=== PATIENT | male | born 1945 | race Caucasian/White ===

== ENCOUNTER 2021-11-25 13:23 | Emergency (ER) | payer OTHER ==
[2021-11-25 15:18] VITALS: BP 142/82
[2021-11-25] MEDS ORDERED: ACE3T PO (16:12)
== END 2021-11-25 16:40 | disposition home or self-care (01) ==
LOC: ER 13:23
DX: S30.0XXA Contusion of lower back and pelvis, initial encounter (principal); J44.9 Chronic obstructive pulmonary disease, unspecified; I10 Essential (primary) hypertension; F17.210 Nicotine dependence, cigarettes, uncomplicated; W18.11XA Fall from or off toilet without subsequent striking against object, initial encounter; Y93.89 Activity, other specified; Y92.091 Bathroom in other non-institutional residence as the place of occurrence of the external cause; Y99.8 Other external cause status
CPT/HCPCS: 72100

== ENCOUNTER 2021-11-28 15:51 | Emergency (ER) | payer OTHER ==
[~2021-11-28] VITALS: Ht 180.3 cm; Wt 80.0 kg
[~2021-11-28 15:51] MED LIST: ACE3T PO
[2021-11-28] MEDS ORDERED: SODIUM CHLORIDE 0.9% 1,000 ML IVB ONE (17:30)
[2021-11-28 19:58] LABS: Basophils # (auto) 0.1 10 ^3/uL (0-0.2); Basophils % (auto) 1.1 % (0.0-2.0); Eosinophils # (auto) 0.1 10 ^3/uL (0-0.8); Eosinophils % (auto) 1.5 % (0.0-7.0); Hematocrit 50.6 % (41.0-53.0); Hemoglobin 16.6 g/dL (13.5-17.5); Lymphocytes # (auto) 1.5 10 ^3/uL (0.4-5.4); Lymphocytes % (auto) 19.2 % (10.0-50.0); Mean Corpuscular Hemoglobin 31.7 pg (28.0-32.0); Mean Corpuscular Hgb Conc. 32.9 g/dL (32.0-36.0); Mean Corpuscular Volume 96.5 fL (80.0-100.0); Monocytes # (auto) 0.8 10 ^3/uL (0-1.3); Monocytes % (auto) 10.1 % (0.0-12.0); Neutrophils # (auto) 5.4 10 ^3/uL (1.6-8.6); Neutrophils % (auto) 68.1 % (37.0-80.0); Nucleated Red Blood Cells % 0.1 %; Red Blood Cells 5.24 10^6/uL (4.5-5.90); Red Cell Distribution Width 13.8 % (11.8-14.3); White Blood Cell 7.9 10^3/uL (4.4-10.8)
[2021-11-28] MEDS ORDERED: DILT120T13 PO (19:58)
[2021-11-28] MEDS ORDERED: SENN1TAB14 PO (19:58)
[2021-11-28] MEDS ORDERED: DOCU100T15 PO (19:58)
[2021-11-28] MEDS ORDERED: ACETAMINOPHEN 500 MG TAB PO ONE (20:00)
[2021-11-28 21:05] VITALS: BP 144/90
[2021-11-28] MEDS ORDERED: dilTIAZem 120MG ER CAP PO ONE (21:15)
[2021-11-28 21:35] LABS: Calcium 8.7 mg/dL (8.5-10.1); Potassium 4.4 mmol/L (3.5-5.1)
[2021-11-28 21:39] LABS: BUN/Creatinine Ratio 12.8; Bilirubin, Total 0.6 mg/dL (0.2-1.0)
== END 2021-11-28 21:03 | disposition home or self-care (01) ==
LOC: ER 15:51 → EDUNIT# 15:51 → ER 21:03
DX: K59.00 Constipation, unspecified (principal); K21.9 Gastro-esophageal reflux disease without esophagitis; Z76.0 Encounter for issue of repeat prescription; Z79.899 Other long term (current) drug therapy
CPT/HCPCS: 36415; 74176; 80053; 83605; 83690; 84484; 85025; 93005; 96360

== ENCOUNTER 2022-11-24 08:05 | Inpatient (IN) | payer OTHER ==
[2022-11-24] VITALS (7 sets, daily range): BP systolic 98–138; BP diastolic 69–87; PULSE 48–88; RESP 17–20; TEMP 97.6–97.7; O2SAT 90–96
[~2022-11-24] VITALS: Ht 182.9 cm; Wt 94.4 kg
[~2022-11-24 08:05] MED LIST changes: +DILT120T13 PO; +DOCU100T15 PO; +SENN1TAB14 PO
[2022-11-24] MEDS ORDERED: ETOMIDATE (2MG/ML) 20ML VIAL IV ONE ×2 (10:32)
[2022-11-24] MEDS ORDERED: SUCCINYLCHOLINE CHLORIDE 20 MG/ML 10ML VIAL IV ONE (10:32)
[2022-11-24] MEDS ORDERED: HYDROmorphone HCL 2 MG/ML VL/or syr IV ONE (11:15)
[2022-11-24] MEDS ORDERED: ONDANSETRON HCL 4 MG/2 ML VIAL IV ONE (11:15)
[2022-11-24] MEDS ORDERED: SODIUM CHLORIDE 0.9% 1,000 ML IV ONE (11:15)
[2022-11-24 11:30] LABS: Basophils # (auto) 0 10 ^3/uL (0-0.2); Basophils % (auto) 0.3 % (0.0-2.0); Eosinophils # (auto) 0 10 ^3/uL (0-0.8); Hematocrit 46.3 % (41.0-53.0); Hemoglobin 15.6 g/dL (13.5-17.5); Lymphocytes # (auto) 0.7 10 ^3/uL (0.4-5.4); Lymphocytes % (auto) 8.3 % (10.0-50.0); Mean Corpuscular Hemoglobin 32.9 pg (28.0-32.0); Mean Corpuscular Hgb Conc. 33.8 g/dL (32.0-36.0); Mean Corpuscular Volume 97.4 fL (80.0-100.0); Monocytes # (auto) 0.6 10 ^3/uL (0-1.3); Monocytes % (auto) 6.6 % (0.0-12.0); Neutrophils # (auto) 7.5 10 ^3/uL (1.6-8.6); Neutrophils % (auto) 84.8 % (37.0-80.0); Nucleated Red Blood Cells % 0.1 %; Red Blood Cells 4.75 10^6/uL (4.5-5.90); Red Cell Distribution Width 13.7 % (11.8-14.3); White Blood Cell 8.8 10^3/uL (4.4-10.8)
[2022-11-24 11:44] LABS: INR 1.04 (0.9-1.15); Partial Thromboplastin Time 27.3 SEC (24.5-34.5)
[2022-11-24 12:08] LABS: Albumin 3.3 g/dL (3.4-5.0); Calcium 8.9 mg/dL (8.5-10.1); Magnesium 2.5 mg/dL (1.6-2.6); Potassium 5.1 mmol/L (3.5-5.1)
[2022-11-24 12:13] LABS: BUN/Creatinine Ratio 12.5 (10.0-20.0); Bilirubin, Total 0.7 mg/dL (0.2-1.0)
[2022-11-24] MEDS ORDERED: MORPHINE SULFATE INJ 2 MG/ml SYRG IV PRN (12:45)
[2022-11-24] MEDS ORDERED: ACETAMINOPHEN 325 MG TAB PO PRN (12:45)
[2022-11-24] MEDS ORDERED: IPRATROPIUM BROM 0.5 MG/2.5ML INH SOL NEB ONE (13:00)
[2022-11-24] MEDS ORDERED: ALBUTEROL SULF 2.5 MG/0.5ML(0.5%) NEB SOLN NEB PRN (13:00)
[2022-11-24] MEDS ORDERED: IPRATROPIUM BROM 0.5 MG/2.5ML INH SOL NEB PRN (13:00)
[2022-11-24] MEDS ORDERED: ALBUTEROL SULF 2.5 MG/0.5ML(0.5%) NEB SOLN NEB ONE (13:00)
[2022-11-24] MEDS: HYDROcodone-ACET 5/325MG TAB PO PRN (15:13)
[2022-11-24 15:44] LABS: Urine Bacteria NONE SEEN /hpf (None Seen); Urine Blood Negative /uL (Negative); Urine Mucus FEW (None Seen); Urine Specific Gravity 1.022 (1.001-1.035); Urine WBC 4 /hpf (0 - 3)
[2022-11-24] MEDS ORDERED: TRAZ-228 PO (16:21)
[2022-11-24] MEDS ORDERED: PANT40T PO (16:21)
[2022-11-24] MEDS: traZODone HCL 50 MG TAB PO SCH (21:30)
[2022-11-24] MEDS: dilTIAZem HCL 60 MG TAB PO SCH (21:38)
[2022-11-25] VITALS (10 sets, daily range): BP systolic 98–145; BP diastolic 69–98; PULSE 62–98; RESP 17–69; TEMP 97.6–98.3; O2SAT 90–96
[2022-11-25 06:16] LABS: Basophils # (auto) 0 10 ^3/uL (0-0.2); Basophils % (auto) 0.3 % (0.0-2.0); Eosinophils # (auto) 0 10 ^3/uL (0-0.8); Eosinophils % (auto) 0.4 % (0.0-7.0); Hematocrit 44.4 % (41.0-53.0); Hemoglobin 15.2 g/dL (13.5-17.5); Lymphocytes # (auto) 0.8 10 ^3/uL (0.4-5.4); Lymphocytes % (auto) 10.6 % (10.0-50.0); Mean Corpuscular Hemoglobin 33.3 pg (28.0-32.0); Mean Corpuscular Hgb Conc. 34.3 g/dL (32.0-36.0); Mean Corpuscular Volume 97.2 fL (80.0-100.0); Monocytes # (auto) 0.8 10 ^3/uL (0-1.3); Monocytes % (auto) 10.4 % (0.0-12.0); Neutrophils # (auto) 5.8 10 ^3/uL (1.6-8.6); Neutrophils % (auto) 78.3 % (37.0-80.0); Nucleated Red Blood Cells % 0.1 %; Red Blood Cells 4.56 10^6/uL (4.5-5.90); Red Cell Distribution Width 13.7 % (11.8-14.3); White Blood Cell 7.4 10^3/uL (4.4-10.8)
[2022-11-25 06:51] LABS: Bilirubin, Total 0.8 mg/dL (0.2-1.0); Calcium 8.9 mg/dL (8.5-10.1)
[2022-11-25 07:14] LABS: Cholesterol 156 mg/dL (< 200); HDL Cholesterol 12 mg/dL (40-59); LDL Cholesterol 57 mg/dL (< 100); Triglycerides 61 mg/dL (< 150)
[2022-11-25] MEDS: HYDROcodone-ACET 5/325MG TAB PO PRN (08:55)
[2022-11-25] MEDS: dilTIAZem HCL 60 MG TAB PO SCH ×2 (08:55→23:02)
[2022-11-25] MEDS: PANTOPRAZOLE 40 MG/10 ML VIAL INJ IV SCH (08:55)
[2022-11-25] MEDS: ENOXAPARIN SOD 40 MG/0.4 ML SYRINGE SC SCH (08:56)
[2022-11-25] MEDS ORDERED: ceFAZolin 1GM/50ML 100 ML IV ONE (11:08)
[2022-11-25] MEDS ORDERED: BUPIVACAINE 0.25% INJ 50ML VIAL ONE (11:31)
[2022-11-25] MEDS ORDERED: TETRACAINE 1% INJ 2 ML VIAL IJ ONE (11:58)
[2022-11-25] MEDS ORDERED: fentaNYL CITRATE 100 MCG/2 ML VL ONE (11:59)
[2022-11-25] MEDS ORDERED: MORPHINE SULF PF 5 MG/10 ML VIAL ONE (11:59)
[2022-11-25] MEDS ORDERED: MIDAZOLAM HCL 2MG/2ML 2ml VIAL (1mg/ml) ONE (13:03)
[2022-11-25] MEDS ORDERED: PROPOFOL 10 MG/ML 20 ML IV ONE (13:05)
[2022-11-25] MEDS ORDERED: ONDANSETRON HCL 4 MG/2 ML VIAL ONE (13:05)
[2022-11-25] MEDS ORDERED: NALBUPHINE HCL 10 MG/1ml INJECTION SUBCUT ONE (13:45)
[2022-11-25] MEDS ORDERED: HYDROmorphone HCL 2 MG/ML VL/or syr IV PRN (13:45)
[2022-11-25] MEDS ORDERED: ONDANSETRON HCL 4 MG/2 ML VIAL IV PRN (13:45)
[2022-11-25] MEDS ORDERED: DexAMETHasone SOD PHOS 10MG/1ML VIAL INJ IV PRN (13:45)
[2022-11-25] MEDS ORDERED: NALOXONE HCL 0.4 MG/ML VIAL IV PRN (13:45)
[2022-11-25] MEDS: FOLIC ACID 1 MG, MULTIPLE VITAMIN 10 ML, MAGNESIUM SULF SDV 50% 8 MEQ, THIAMINE INJ 100... INJ SCH ×5 (18:28)
[2022-11-25] MEDS: traZODone HCL 50 MG TAB PO SCH (22:57)
[2022-11-26] VITALS (10 sets, daily range): BP systolic 97–122; BP diastolic 59–74; PULSE 55–85; RESP 16–20; TEMP 98–98.5; O2SAT 90–96
[2022-11-26] MEDS: PANTOPRAZOLE 40 MG/10 ML VIAL INJ IV SCH (09:54)
[2022-11-26] MEDS: ENOXAPARIN SOD 40 MG/0.4 ML SYRINGE SC SCH (09:55)
[2022-11-26] MEDS: dilTIAZem HCL 60 MG TAB PO SCH ×2 (09:55→22:27)
[2022-11-26] MEDS: HYDROcodone-ACET 5/325MG TAB PO PRN ×2 (12:23→22:26)
[2022-11-26] MEDS: FOLIC ACID 1 MG, MULTIPLE VITAMIN 10 ML, MAGNESIUM SULF SDV 50% 8 MEQ, THIAMINE INJ 100... INJ SCH ×5 (13:23)
[2022-11-26] MEDS: traZODone HCL 50 MG TAB PO SCH (22:26)
[2022-11-27 05:00] VITALS: BP 121/50; PULSE 51; RESP 14; TEMP 98.3; O2SAT 95
[2022-11-27 06:35] LABS: Basophils # (auto) 0 10 ^3/uL (0-0.2); Basophils % (auto) 0.3 % (0.0-2.0); Eosinophils # (auto) 0.1 10 ^3/uL (0-0.8); Eosinophils % (auto) 0.7 % (0.0-7.0); Hematocrit 40.2 % (41.0-53.0); Hemoglobin 13.6 g/dL (13.5-17.5); Lymphocytes # (auto) 0.8 10 ^3/uL (0.4-5.4); Lymphocytes % (auto) 11.3 % (10.0-50.0); Mean Corpuscular Hgb Conc. 33.9 g/dL (32.0-36.0); Mean Corpuscular Volume 97.1 fL (80.0-100.0); Monocytes # (auto) 0.8 10 ^3/uL (0-1.3); Monocytes % (auto) 10.9 % (0.0-12.0); Neutrophils # (auto) 5.5 10 ^3/uL (1.6-8.6); Neutrophils % (auto) 76.8 % (37.0-80.0); Nucleated Red Blood Cells % 0.1 %; Red Blood Cells 4.14 10^6/uL (4.5-5.90); Red Cell Distribution Width 13.3 % (11.8-14.3); White Blood Cell 7.2 10^3/uL (4.4-10.8)
[2022-11-27 06:53] LABS: BUN/Creatinine Ratio 10.6 (10.0-20.0); Calcium 8.2 mg/dL (8.5-10.1)
[2022-11-27 09:14] VITALS: BP 140/76; PULSE 63; RESP 17; TEMP 98.2; O2SAT 91
[2022-11-27] MEDS: ENOXAPARIN SOD 40 MG/0.4 ML SYRINGE SC SCH (09:18)
[2022-11-27] MEDS: PANTOPRAZOLE 40 MG/10 ML VIAL INJ IV SCH (09:18)
[2022-11-27] MEDS: dilTIAZem HCL 60 MG TAB PO SCH (09:19)
[2022-11-27] MEDS: HYDROcodone-ACET 5/325MG TAB PO PRN (09:19)
[2022-11-27 10:38] VITALS: O2SAT 96
[2022-11-27] MEDS: FOLIC ACID 1 MG, MULTIPLE VITAMIN 10 ML, MAGNESIUM SULF SDV 50% 8 MEQ, THIAMINE INJ 100... INJ SCH ×5 (13:04)
[2022-11-27 13:20] VITALS: BP 119/65; PULSE 68; RESP 16; TEMP 98; O2SAT 94
[2022-11-27 14:55] VITALS: BP 140/76; PULSE 63; TEMP 36.7
[2022-11-27 17:10] VITALS: BP 143/90; PULSE 76; RESP 15; TEMP 97.8; O2SAT 94
== END 2022-11-27 18:00 | DRG 482 ==
LOC: EDBD 08:05 → ER 08:05 → OVERFLOW 12:47 → EAST 15:25
PROVIDERS: ADMIT Hospitalist; ATTEND Hospitalist
PROC: 0QU73JZ Supplement Left Upper Femur with Synthetic Substitute, Percutaneous Approach (ICD-10-PCS; 2022-11-25)
PROC: BQ11ZZZ Fluoroscopy of Left Hip (ICD-10-PCS; 2022-11-25)
PROC: BQ01ZZZ Plain Radiography of Left Hip (ICD-10-PCS; 2022-11-25)
PROC: 0QS704Z Reposition Left Upper Femur with Internal Fixation Device, Open Approach (ICD-10-PCS; principal; 2022-11-25 12:04)
DX: S72.142A Displaced intertrochanteric fracture of left femur, initial encounter for closed fracture (principal); I48.91 Unspecified atrial fibrillation; E66.9 Obesity, unspecified; F17.210 Nicotine dependence, cigarettes, uncomplicated; I11.0 Hypertensive heart disease with heart failure; W01.0XXA Fall on same level from slipping, tripping and stumbling without subsequent striking against object, initial encounter; I50.9 Heart failure, unspecified; K21.9 Gastro-esophageal reflux disease without esophagitis; R79.89 Other specified abnormal findings of blood chemistry; Z82.49 Family history of ischemic heart disease and other diseases of the circulatory system; Z90.49 Acquired absence of other specified parts of digestive tract; Z68.27 Body mass index [BMI] 27.0-27.9, adult; Y93.89 Activity, other specified; Y92.098 Other place in other non-institutional residence as the place of occurrence of the external cause; Y99.8 Other external cause status
CPT/HCPCS: 36415; 71045; 71275; 73502; 76000; 80048; 80053; 80061; 81001; 83036; 83735; 84443; 84484; 85025; 85379; 85610; 85730; 86850; 86900; 86901; 93005; 93306; 93970; 96361; 96374; 96375; 97110; 97116; 97163; 97530; C9113; G0378; J0330; J0690; J2250; J2405; J2704; J3490

== ENCOUNTER 2022-12-03 20:43 | Inpatient (IN) | payer OTHER ==
[~2022-12-03] VITALS: Ht 182.9 cm; Wt 95.0 kg
[~2022-12-03 20:43] MED LIST changes: +PANT40T PO; +TRAZ-228 PO
[2022-12-03 21:03] VITALS: PULSE 74; RESP 16; O2SAT 95
[2022-12-03] MEDS ORDERED: MORPHINE SULFATE 4 MG/ML SYR/VIAL IV ONE (22:15)
[2022-12-03] MEDS ORDERED: ONDANSETRON HCL 4 MG/2 ML VIAL IV ONE (22:15)
[2022-12-03 22:34] LABS: Basophils # (auto) 0.1 10 ^3/uL (0-0.2); Basophils % (auto) 0.8 % (0.0-2.0); Eosinophils # (auto) 0.2 10 ^3/uL (0-0.8); Eosinophils % (auto) 3.1 % (0.0-7.0); Hematocrit 38.8 % (41.0-53.0); Lymphocytes # (auto) 1.4 10 ^3/uL (0.4-5.4); Mean Corpuscular Hemoglobin 32.2 pg (28.0-32.0); Mean Corpuscular Hgb Conc. 33.5 g/dL (32.0-36.0); Mean Corpuscular Volume 96.3 fL (80.0-100.0); Monocytes # (auto) 0.9 10 ^3/uL (0-1.3); Monocytes % (auto) 11.9 % (0.0-12.0); Neutrophils # (auto) 4.6 10 ^3/uL (1.6-8.6); Neutrophils % (auto) 64.2 % (37.0-80.0); Nucleated Red Blood Cells % 0.1 %; Red Blood Cells 4.03 10^6/uL (4.5-5.90); Red Cell Distribution Width 13.4 % (11.8-14.3); White Blood Cell 7.2 10^3/uL (4.4-10.8)
[2022-12-03 22:50] LABS: Albumin 2.5 g/dL (3.4-5.0); Calcium 8.4 mg/dL (8.5-10.1); Potassium 4.6 mmol/L (3.5-5.1)
[2022-12-03 22:54] LABS: BUN/Creatinine Ratio 11.1 (10.0-20.0); Bilirubin, Total 0.4 mg/dL (0.2-1.0); Total Protein 5.3 g/dL (6.4-8.2)
[2022-12-03] MEDS ORDERED: ceFAZolin 2 GM/D5W100ml 100 ML IV ONE (23:15)
[2022-12-04] MEDS ORDERED: ceFAZolin 1GM VL ONE (00:35)
[2022-12-04] MEDS ORDERED: ACETAMINOPHEN 325 MG TAB PO PRN (02:45)
[2022-12-04] MEDS ORDERED: ONDANSETRON HCL 4 MG/2 ML VIAL IV PRN (02:45)
[2022-12-04 08:00] VITALS: PULSE 72; RESP 17; O2SAT 97
[2022-12-04] MEDS ORDERED: cefTRIAXone 1GM/50ML D5W 50 ML IV SCH (09:00)
[2022-12-04] MEDS: MORPHINE SULFATE INJ 2 MG/ml SYRG IV PRN ×2 (09:26→10:50)
[2022-12-04] MEDS: dilTIAZem 120MG ER CAP PO SCH (10:51)
[2022-12-04] MEDS: ENOXAPARIN SOD 40 MG/0.4 ML SYRINGE SC SCH (10:52)
[2022-12-04] MEDS: PANTOPRAZOLE 40 MG TAB PO SCH (10:52)
[2022-12-04] MEDS ORDERED: MORPHINE SULFATE INJ 2 MG/ml SYRG IV PRN ×2 (13:00→13:45)
[2022-12-04] MEDS: HYDROcodone-ACET 5/325MG TAB PO PRN ×3 (13:42→22:36)
[2022-12-04] MEDS ORDERED: TRAZ-228 PO ×2 (13:44→16:06)
[2022-12-04 14:01] LABS: BUN/Creatinine Ratio 10.1 (10.0-20.0); Calcium 8.8 mg/dL (8.5-10.1); Potassium 4.3 mmol/L (3.5-5.1)
[2022-12-04 15:02] LABS: Basophils # (auto) 0 10 ^3/uL (0-0.2); Basophils % (auto) 0.4 % (0.0-2.0); Eosinophils # (auto) 0.1 10 ^3/uL (0-0.8); Eosinophils % (auto) 1.5 % (0.0-7.0); Hematocrit 41.6 % (41.0-53.0); Lymphocytes % (auto) 12.8 % (10.0-50.0); Mean Corpuscular Hemoglobin 32.1 pg (28.0-32.0); Mean Corpuscular Hgb Conc. 33.5 g/dL (32.0-36.0); Mean Corpuscular Volume 95.6 fL (80.0-100.0); Monocytes # (auto) 0.7 10 ^3/uL (0-1.3); Monocytes % (auto) 9.2 % (0.0-12.0); Neutrophils # (auto) 5.9 10 ^3/uL (1.6-8.6); Neutrophils % (auto) 76.1 % (37.0-80.0); Nucleated Red Blood Cells % 0.1 %; Red Blood Cells 4.35 10^6/uL (4.5-5.90); Red Cell Distribution Width 13.6 % (11.8-14.3); White Blood Cell 7.8 10^3/uL (4.4-10.8)
[2022-12-04] MEDS ORDERED: ASPI325T4 PO (15:07)
[2022-12-04] MEDS ORDERED: IBUP200C3 PO (15:07)
[2022-12-04] MEDS ORDERED: ACET-1079 PO (15:07)
[2022-12-04] MEDS ORDERED: MAGN400S25 PO (15:07)
[2022-12-04] MEDS ORDERED: DILT60TA PO (15:37)
[2022-12-04 15:40] VITALS: BP 130/74; PULSE 76; RESP 18; TEMP 98.5; O2SAT 99
[2022-12-04] MEDS ORDERED: VANCOMYCIN HCL 1000 MG VL IR ONE (15:45)
[2022-12-04] MEDS ORDERED: VANCOMYCIN PER PHARMACY 0 MG IV SCH (15:45)
[2022-12-04] MEDS ORDERED: VANCOMYCIN 1GM/250ML 250 ML IV ONE (16:00)
[2022-12-04 17:00] VITALS: BP 153/105; PULSE 52; RESP 18; TEMP 98; O2SAT 95
[2022-12-04] MEDS: CEFEPIME 1GM/ 50ML 50 ML IV SCH (20:48)
[2022-12-04] MEDS: traZODone HCL 50 MG TAB PO SCH (20:50)
[2022-12-04 21:53] VITALS: BP 142/95; PULSE 60; RESP 18; TEMP 98.3; O2SAT 97
[2022-12-04] MEDS ORDERED: traZODone HCL 50 MG TAB PO SCH (22:00)
[2022-12-04] MEDS ORDERED: CEFEPIME 1GM/ 50ML 50 ML IV SCH (22:00)
[2022-12-05] VITALS (7 sets, daily range): BP systolic 115–167; BP diastolic 72–90; PULSE 52–82; RESP 18–19; TEMP 97.4–98.7; O2SAT 94–98
[2022-12-05] MEDS: HYDROcodone-ACET 5/325MG TAB PO PRN ×3 (05:21→20:42)
[2022-12-05] MEDS: CEFEPIME 1GM/ 50ML 50 ML IV SCH ×3 (05:22→22:37)
[2022-12-05 06:06] LABS: Basophils # (auto) 0 10 ^3/uL (0-0.2); Basophils % (auto) 0.5 % (0.0-2.0); Eosinophils # (auto) 0.2 10 ^3/uL (0-0.8); Eosinophils % (auto) 3.2 % (0.0-7.0); Hematocrit 37.9 % (41.0-53.0); Lymphocytes % (auto) 16.9 % (10.0-50.0); Mean Corpuscular Hemoglobin 32.3 pg (28.0-32.0); Mean Corpuscular Hgb Conc. 34.3 g/dL (32.0-36.0); Mean Corpuscular Volume 94.4 fL (80.0-100.0); Monocytes # (auto) 0.7 10 ^3/uL (0-1.3); Monocytes % (auto) 11.5 % (0.0-12.0); Neutrophils # (auto) 4.2 10 ^3/uL (1.6-8.6); Neutrophils % (auto) 67.9 % (37.0-80.0); Nucleated Red Blood Cells % 0.1 %; Red Blood Cells 4.02 10^6/uL (4.5-5.90); Red Cell Distribution Width 13.3 % (11.8-14.3); White Blood Cell 6.2 10^3/uL (4.4-10.8)
[2022-12-05 06:30] LABS: BUN/Creatinine Ratio 9.9 (10.0-20.0); Calcium 8.8 mg/dL (8.5-10.1); Potassium 4.2 mmol/L (3.5-5.1)
[2022-12-05] MEDS: dilTIAZem 120MG ER CAP PO SCH (08:40)
[2022-12-05] MEDS: PANTOPRAZOLE 40 MG TAB PO SCH (08:41)
[2022-12-05] MEDS: ENOXAPARIN SOD 40 MG/0.4 ML SYRINGE SC SCH (08:41)
[2022-12-05] MEDS: VANCOMYCIN 1GM/250ML 250 ML IV SCH ×2 (09:40→20:40)
[2022-12-05] MEDS ORDERED: CLIN-203 PO (15:40)
[2022-12-05] MEDS: traZODone HCL 50 MG TAB PO SCH (20:39)
[2022-12-06 04:49] VITALS: BP 133/87; PULSE 66; RESP 17; TEMP 98.1; O2SAT 95
[2022-12-06] MEDS: CEFEPIME 1GM/ 50ML 50 ML IV SCH ×2 (06:05→11:40)
[2022-12-06 06:53] LABS: Basophils # (auto) 0 10 ^3/uL (0-0.2); Basophils % (auto) 0.8 % (0.0-2.0); Eosinophils # (auto) 0.2 10 ^3/uL (0-0.8); Hematocrit 40.2 % (41.0-53.0); Hemoglobin 13.5 g/dL (13.5-17.5); Lymphocytes # (auto) 1.1 10 ^3/uL (0.4-5.4); Lymphocytes % (auto) 19.2 % (10.0-50.0); Mean Corpuscular Hemoglobin 32.2 pg (28.0-32.0); Mean Corpuscular Hgb Conc. 33.7 g/dL (32.0-36.0); Mean Corpuscular Volume 95.8 fL (80.0-100.0); Monocytes # (auto) 0.6 10 ^3/uL (0-1.3); Neutrophils # (auto) 3.9 10 ^3/uL (1.6-8.6); Nucleated Red Blood Cells % 0.1 %; Red Cell Distribution Width 13.4 % (11.8-14.3); White Blood Cell 5.9 10^3/uL (4.4-10.8)
[2022-12-06 07:00] LABS: BUN/Creatinine Ratio 10.6 (10.0-20.0); Calcium 9.1 mg/dL (8.5-10.1); Potassium 4.5 mmol/L (3.5-5.1)
[2022-12-06 08:00] VITALS: PULSE 77; RESP 19; O2SAT 95
[2022-12-06 09:45] VITALS: BP 140/88; PULSE 77; RESP 19; TEMP 98; O2SAT 95
[2022-12-06] MEDS: ENOXAPARIN SOD 40 MG/0.4 ML SYRINGE SC SCH (10:45)
[2022-12-06] MEDS: PANTOPRAZOLE 40 MG TAB PO SCH (10:45)
[2022-12-06] MEDS: dilTIAZem 120MG ER CAP PO SCH (10:45)
[2022-12-06 10:58] VITALS: BP 140/88; PULSE 77; RESP 19; TEMP 98; O2SAT 95
[2022-12-06] MEDS: VANCOMYCIN 1GM/250ML 250 ML IV SCH (11:40)
== END 2022-12-06 12:30 | disposition home health service (06) | DRG 603 ==
LOC: EDUNIT# 20:43 → ER 20:43 → EDBD 20:43 → OVERFLOW 12-04 02:41 → EAST 12-04 14:32
PROVIDERS: ADMIT Internal Medicine; ATTEND Internal Medicine
DX: L03.116 Cellulitis of left lower limb (principal); I48.91 Unspecified atrial fibrillation; R60.0 Localized edema; F17.210 Nicotine dependence, cigarettes, uncomplicated; I10 Essential (primary) hypertension; W18.39XA Other fall on same level, initial encounter; K21.9 Gastro-esophageal reflux disease without esophagitis; Z90.49 Acquired absence of other specified parts of digestive tract; Z47.89 Encounter for other orthopedic aftercare; Z82.49 Family history of ischemic heart disease and other diseases of the circulatory system; Y93.89 Activity, other specified; Y99.8 Other external cause status
CPT/HCPCS: 36415; 72192; 80048; 80053; 83605; 85025; 87040; 93971; 97110; 97116; 97163; 97530; G0378; J0690; J0696; J2405

== ENCOUNTER 2025-03-04 14:10 | Inpatient (IN) | payer OTHER ==
[~2025-03-04] VITALS: Ht 175.3 cm; Wt 95.5 kg
[~2025-03-04 14:10] MED LIST changes: +ACET-1079 PO; +ASPI325T6 PO; +AZIT-185 PO; +CLIN-203 PO; +IBUP200C3 PO; +MAGN400S25 PO; +PRED20TA2 PO
--- NOTE | 2025-03-04 14:20 | ED.PDOC ---
History of Present Illness HPI Comments This is an 79 year-old male who presents to the ED via EMS with a chief complaint of difficulty swallowing and dizziness. Patient additionally presents to the ED with a neck collar S/P fall X2 months ago. Patient lives in a correction at [facility]. There are no further complaints or modifying factors at th is time. Patient otherwise denies further associated symptoms of cough, chest pain, weakness, migraine, fever, or chills. Time Seen by MD: 14:06 Primary Care Provider: YOSSI Ruiz Notes: Medications, Allergies Allergies: Coded Allergies: NO KNOWN ALLERGIES (Unverified , 11/25/21) Home Meds Active Scripts Prednisone (Prednisone) 20 Mg Tab, 40 MG PO DAILY for 5 Days, #10 MG Prov:SAMINA COLUNGA MD 12/16/23 Azithromycin (ZITHROMAX TABLET) 250 Mg Tb, 250 MG PO DAILY for 5 Days, #5 TAB Prov:SAMINA COLUNGA MD 12/16/23 Clindamycin HCl (Clindamycin Hydrochloride) 300 Mg Cap, 300 MG PO TID, #21 CAP Prov:TK TODD MD 12/05/22 Diltiazem HCl (Diltiazem Hydrochloride) 120 Mg Tab, 120 MG PO DAILY PRN for 7 Days, #7 TAB Prov:CITLALI FRITZ MD 11/28/21 Docusate Sodium (Docusate Sodium) 100 Mg Tab, 100 MG PO DAILY PRN for 20 Days, #20 TAB Prov:CITLALI FRITZ MD 11/28/21 Senna (Senna Lax) 8.6 Mg Tab, 8.6 MG PO QHSP PRN for 20 Days, #20 MG Prov:CITLALI FRITZ MD 11/28/21 Acetaminophen W/ Codeine (Tylenol W/Cod #3) 1 Tab Tb, 1 TAB PO QID PRN, #10 TAB 0 Refills Prov:JAYLEN YEN 11/25/21 Reported Medications Trazodone Hcl (Trazodone Hcl) 100 Mg Tab, 2 TAB PO QPM for SLEEP 12/04/22 Magnesium Hydroxide (Milk Of Magnesia) 400 Mg/5 Ml Charla, 400 MG PO DAILY PRN for CONSTIPATION, ML 12/04/22 Acetaminophen (Tylenol) 325 Mg Tb, 325 MG PO DAILY PRN for KNEE PAIN, TAB 12/04/22 Ibuprofen (Ibuprofen) 200 Mg Cap, 200 MG PO DAILY PRN for KNEE PAIN, MG 12/04/22 Aspirin (Aspirin) 325 Mg Tab, 325 MG PO DAILY, MG 12/04/22 Pantoprazole Sodium Sesquihydr (Pantoprazole Sodium) 40 Mg Tab, 1 TAB PO DAILY 11/24/22 Information Source: Patient, Emergency Med Personnel Mode of Arrival: EMS Severity: Moderate Duration: Since onset Past Medical History PAST MEDICAL HISTORY: AFIB, COPD, GERD Surgical History: Appendectomy, Tonsillectomy Family History Family History: Unknown Social History Smoker: Cigarettes, Less Than 1 Pack/Day Alcohol: Denies ETOH Use Drugs: Denies Drug Use Lives In: Home Constitutional: denies: chills, diaphoresis, fatigue, fever, malaise, sweats, weakness, others EENTM: reports: others (difficulty swallowing ); denies: blurred vision, double vision, ear bleeding, ear discharge, ear drainage, ear pain, ear ringing, eye pain, eye redness, hearing loss, mouth pain, mouth swelling, nasal discharge, nose bleeding, nose congestion, nose pain, photophobia, tearing, throat pain, throat swelling, voice changes Respiratory: denies: cough, hemoptysis, orthopnea, SOB at rest, shortness of breath, SOB with excertion, stridor, wheezing, others Cardiovascular: denies: chest pain, dizzy spells, diaphoresis, Dyspnea on exertion, edema, irregular heart beat, left arm pain, lightheadedness, palpitations, PND, syncope, others Gastrointestinal: denies: abdomen distended, abdominal pain, blood streaked bowels, constipated, diarrhea, dysphagia, difficulty swallowing, hematemesis, melena, nausea, poor appetite, poor fluid intake, rectal bleeding, rectal pain, vomiting, others Genitourinary: denies: burning, dysuria, flank pain, frequency, hematuria, incontinence, penile discharge, penile sore, pain, testicle pain, testicle swelling, urgency, others Neurological: reports: dizziness; denies: fainting, headache, left sided numbness, left sided weakness, numbness, paresthesia, pre-existing deficit, right sided numbness, right sided weakness, seizure, speech problems, tingling, tremors, weakness, others Musculoskeletal: denies: back pain, gout, joint pain, joint swelling, muscle pain, muscle stiffness, neck pain, others Integumetry: denies: bruises, change in color, change in hair/nails, dryness, laceration, lesions, lumps, rash, wounds, others Allergic/Immunocompromised: denies: Difficulty Healing, Frequent Infections, Hives, Itching, others Hematologic/Lymphatic: denies: anemia, blood clots, easy bleeding, easy bruising, swollen glands, others Endocrine: denies: excessive hunger, excessive sweating, excessive thirst, excessive urination, flushing, intolerance to cold, intolerance to heat, unexplained weight gain, unexplained weight loss, others Psychiatric: denies: anxiety, bipolar disorder, depression, hopeless, panic disorder, schizophrenia, sleepless, suicidal, others All Other Systems: Reviewed and Negative Physical Exam General Appearance: Moderate Distress HEENT: Normal ENT Inspection, Pharynx Normal, TMs Normal Neck: Full Range of Motion, Non-Tender, Normal, Normal Inspection Respiratory: Chest Non-Tender, Lungs Clear, No Accessory Muscle Use, No Respiratory Distress, Normal Breath Sounds Cardiovascular: No Edema, No JVD, No Murmur, No Gallop, Normal Peripheral Pulses, Regular Rate/Rhythm Breast Exam: Deferred Gastrointestinal: No Organomegaly, Non Tender, No Pulsatile Mass, Normal Bowel Sounds, Soft Genitalia: Deferred Pelvic: Deferred Rectal: Deferred Extremities: No calf tenderness, No pedal edema Musculoskeletal : Apperance: Normal Neurologic: Alert, No Motor Deficits, No Sensory Deficits Cerebellar Function: NOT DONE Reflexes: NOT DONE Skin: Bruises (Forehead bilateral knee) Peripheral Pulses: 3+ Radial (R), 3+ Radial (L) Lymphatic: No Adenopathy Was a procedure done? Was a procedure done?: No Differential Dx Considerations may include: Anemia Electrolyte imbalance X-Ray, Labs, Meds, VS Vital Signs Date Time Temp Pulse Resp B/P (MAP) Pulse Ox O2 Delivery O2 Flow Rate FiO2 03/04/25 15:31 72 19 95 Room Air* 0 21 03/04/25 15:31 98.1 72 19 130/90 (103) 95 98.1 03/04/25 14:10 98.7 65 20 171/85 97 98.7 Lab Test 03/04/25 14:40 Range/Units White Blood Count 8.3 4.4-10.8 10^3/uL Red Blood Count 5.25 4.5-5.90 10^6/uL Hemoglobin 17.5 13.5-17.5 g/dL Hematocrit 52.0 41.0-53.0 % Mean Corpuscular Volume 99.0 80.0-100.0 fL Mean Corpuscular Hemoglobin 33.4 H 28.0-32.0 pg Mean Corpuscular Hemoglobin Concent 33.7 32.0-36.0 g/dL Red Cell Distribution Width 13.6 11.8-14.3 % Platelet Count 250 140-450 10^3/uL Mean Platelet Volume 8.9 6.9-10.8 fL Neutrophils (%) (Auto) 74.9 37.0-80.0 % Lymphocytes (%) (Auto) 12.8 10.0-50.0 % Monocytes (%) (Auto) 10.5 0.0-12.0 % Eosinophils (%) (Auto) 1.3 0.0-7.0 % Basophils (%) (Auto) 0.5 0.0-2.0 % Neutrophils # (Auto) 6.2 1.6-8.6 10 ^3/uL Lymphocytes # (Auto) 1.1 0.4-5.4 10 ^3/uL Monocytes # (Auto) 0.9 0-1.3 10 ^3/uL Eosinophils # (Auto) 0.1 0-0.8 10 ^3/uL Basophils # (Auto) 0 0-0.2 10 ^3/uL Nucleated Red Blood Cells 0.1 % Sodium Level 139 136-145 mmol/L Potassium Level 3.8 3.5-5.1 mmol/L Chloride Level 103 98-107 mmol/L Carbon Dioxide Level 23 20-31 mmol/L Anion Gap 13 5-15 Blood Urea Nitrogen 14 9-23 mg/dL Creatinine 0.80 0.700-1.30 mg/dL Glomerular Filtration Rate Calc 89 >90 mL/min BUN/Creatinine Ratio 17.5 10.0-20.0 Serum Glucose 99 74-106 mg/dL Calcium Level 9.6 8.7-10.4 mg/dL Troponin I High Sensitivity 20 </=54 ng/L [facility] [id number] [facility] [address] Ph: [phone] DIAGNOSTIC IMAGING Diagnostic Imaging Report : [id number] Signed PATIENT: ROGELIO RUEDA ACCT: [id number] UNIT: [id number] : 1945 LOC: ER ROOM / BED: / AGE / SEX: 79 / M ADM STATUS: REG ER SERVICE 141 ORDERING PHYSICIAN: KAYLYNN WILSON MD PROCEDURE(s): CXRP - CHEST PORTABLE REASON: sob ORDER NUMBER(s): [id number], ACCESSION NUMBER(s): [id number] CHEST RADIOGRAPH Indication: sob Technique: Single frontal view of the chest was obtained Comparison: XY CHEST PORTABLE on DOS: 12/16/23, XY CHEST PORTABLE on DOS: 11/24/22 FINDINGS: Lines and Tubes: None Lungs: Patchy airspace disease is noted bilaterally recommend comparison with previous study or CT chest for further evaluation. Pleura: No effusion. No pneumothorax. Cardiomediastinal contours: Unremarkable Bones: No acute osseous abnormality. IMPRESSION: 1. Patchy bilateral airspace disease in the lower lung murphy. 2. Recommend comparison with previous studies as these findings may be chronic. 3. If not available recommend CT chest. Patient alert. Old injury. Did fall few months ago. Vitals stable. Has not fell recently. Having difficulty breathing. C-collar in place. Explained to the patient. Continue monitoring. Time of 1ST Reevaluation: 15:03 Reevaluation 1ST: Unchanged Patient Education/Counseling: Diagnosis, Treatment Family Education/Counseling: No Family Present SEPSIS Sepsis Screen Physician Orders Chest Portable (03/04/25 14:14) Urinalysis (03/04/25 14:14) Vital Signs Date Time Temp Pulse Resp B/P (MAP) Pulse Ox O2 Delivery O2 Flow Rate FiO2 03/04/25 15:31 72 19 95 Room Air* 0 21 03/04/25 15:31 98.1 72 19 130/90 (103) 95 98.1 03/04/25 14:10 98.7 65 20 171/85 97 98.7 Laboratory Tests Test 03/04/25 14:40 White Blood Count 8.3 10^3/uL (4.4-10.8) Departure 1 Departure Time of Disposition: 14:27 Impression: Primary Impression: Esophageal spasm Disposition: 09 ADMITTED INPATIENT Admit to: Med Surg Condition: Guarded Critical Care Note Critical Care Time?: No Stability Stability form required: No Heart Score Heart Score: Heart Score Response (Comments) Value History N/A 0 EKG N/A 0 Age N/A 0 Risk Factors N/A 0 Troponin N/A 0 Total 0 I personally scribed for KAYLYNN WILSON MD ([email or web address]) on 03/04/25 at 14:20. Electronically submitted by Breanne Wang (Group 47). I personally scribed for KAYLYNN WILSON MD ([email or web address]) on 03/04/25 at 14:25. Electronically submitted by Breanne Wang (Group 47). I personally scribed for KAYLYNN WILSON MD ([email or web address]) on 03/04/25 at 17:02. Electronically submitted by Breanne Wang (Group 47). KAYLYNN WILSON MD Mar 04, 2025 14:20
[2025-03-04 15:04] LABS: Hematocrit 52.0 % (41.0-53.0); Hemoglobin 17.5 g/dL (13.5-17.5); Mean Corpuscular Hemoglobin 33.4 pg (28.0-32.0); Mean Corpuscular Volume 99.0 fL (80.0-100.0); Nucleated Red Blood Cells % 0.1 %
[2025-03-04 15:11] LABS: Chloride 103 mmol/L (98-107); Potassium 3.8 mmol/L (3.5-5.1); Sodium 139 mmol/L (136-145)
[2025-03-04 15:12] LABS: Anion Gap 13 (5-15); Carbon Dioxide 23 mmol/L (20-31)
[2025-03-04 15:13] LABS: Calcium 9.6 mg/dL (8.7-10.4)
--- NOTE | 2025-03-04 15:13 | DVH ---
CHEST RADIOGRAPH Indication: sob Technique: Single frontal view of the chest was obtained Comparison: XY CHEST PORTABLE on DOS: 12/16/23, XY CHEST PORTABLE on DOS: 11/24/22 FINDINGS: Lines and Tubes: None Lungs: Patchy airspace disease is noted bilaterally recommend comparison with previous study or CT ch est for further evaluation. Pleura: No effusion. No pneumothorax. Cardiomediastinal contours: Unremarkable Bones: No acute osseous abnormality. IMPRESSION: 1. Patchy bilateral airspace disease in the lower lung murphy. 2. Recommend comparison with previous studies as these findings may be chronic. 3. If not available recommend CT chest.
[2025-03-04 15:18] LABS: BUN/Creatinine Ratio 17.5 (10.0-20.0); Blood Urea Nitrogen 14 mg/dL (9-23); Glucose 99 mg/dL (74-106)
[2025-03-04 15:31] VITALS: PULSE 72; RESP 19; O2SAT 95
--- NOTE | 2025-03-04 20:47 | DVHHPRES ---
History of Present Illness Resident Creating Document: JES RAY History of Present Illness Patient is a 79-year-old male with past medical history of AFib, COPD, GERD presented to [facility] ED with complaint of difficulty swallowing and dizziness. 1 week ago, on Friday morning, the patient experienced a fall while standing and walking a few steps. He hit his head and lost consciousness for approximately 2-3 minutes. Post-fall, he developed visible bruises in this forehead, and was taken to [facility], where diagnosed with C1 vertebra fracture. He was subsequently transferred to [facility] for rehabilitation and then sent to [facility] today. Since the fall, the patient reports difficulty swallowing and occipital headache. He started experiencing dysphagia to both liquids and solids 3 days ago. On evaluation in the ED, patient is afebrile, hypoxic and tachycardia. Initial labs show within normal limit. Chest X-ray shows patchy bilateral airspace disease in the lower lung murphy. Patient is admitted for further evaluation and management. Cardiovascular: AFIB Pulmonary: COPD GI: GERD Past Surgical History: Appendectomy, Cataract Removal, Tonsillectomy Family History: None Smoke: No ALCOHOL: none Drugs: None Review of Systems Review of Systems Constitutional: Difficulty swallowing, dizziness, headache Eyes: No Pain, No Vision change, No Conjunctivae inflammation, No Eyelid inflammation, No Other, No Redness ENT: No Ear pain, No Ear discharge, No Nose pain, No Nose discharge, No Nose congestion, No Mouth pain, No Mouth swelling, No Throat pain, No Throat swelling, No Other Cardiovascular: No Chest Pain, No Palpitations, No Orthopnea, No Paroxysmal No Dyspnea, No Edema, No Lt Headedness, No Other Respiratory: No Cough, No Dry, No Shortness of breath, No SOB with exertion, No Wheezing, No Hemoptysis, No Pleuritic Pain, No Sputum, No Other Gastrointestinal: No Nausea, No Vomiting, No Abdominal Pain, No Diarrhea, No Constipation, No Melena, No Hematochezia, No Other Genitourinary: No Dysuria, No Frequency, No Incontinence, No Hematuria, No Retention, No Other Musculoskeletal: No other, No neck pain, No shoulder pain, No arm pain, No back pain, No hand pain, No leg pain, No foot pain Skin: No Rash, No Lesions, No Jaundice, No Bruising, No Other Allergies: Coded Allergies: NO KNOWN ALLERGIES (Unverified , 11/25/21) Exam Vital Signs Vital Signs Date Time Temp Pulse Resp B/P (MAP) Pulse Ox O2 Delivery O2 Flow Rate FiO2 03/04/25 19:22 98.2 74 18 121/81 (94) 94 98.2 03/04/25 15:31 Room Air* 0 21 Exam General Appearance: Mild to moderate distress. Cooperative. Well developed. Well nourished. NAD Head Exam: Normal inspection Neck Exam: Normal inspection. Non-tender. Normal alignment Pulmonary/Respiratory: Chest non-tender. Clear bilateral breath sounds, left lower lung crackles, no wheezing. Cardiovascular/Chest: Regular rate and rhythm. No murmurs. No JVD. Peripheral Pulses: 2+ Radial (R). 2+ Radial (L). 2+ Pedal (R). 2+ Pedal (L) Abdominal Exam: Normal bowel sounds. Soft. normal abdomen, no visible veins, Nontender. No hepatospenomegaly. No masses Ankle Exam: Negative ankle edema Lower extremities: Negative lower extremity edema Neuro/Mental Status: A&O x4. Coherent. Thoughts/Psych: Normal thought pattern. Appropriate mood and affect. Good judgement and insight Skin Exam: Bruises (Forehead, nose, bilateral arm, bilateral knee), Normal inspection. Normal color. Warm. Dry Labs/Xrays Labs Test 03/04/25 14:40 Range/Units White Blood Count 8.3 4.4-10.8 10^3/uL Red Blood Count 5.25 4.5-5.90 10^6/uL Hemoglobin 17.5 13.5-17.5 g/dL Hematocrit 52.0 41.0-53.0 % Mean Corpuscular Volume 99.0 80.0-100.0 fL Mean Corpuscular Hemoglobin 33.4 H 28.0-32.0 pg Mean Corpuscular Hemoglobin Concent 33.7 32.0-36.0 g/dL Red Cell Distribution Width 13.6 11.8-14.3 % Platelet Count 250 140-450 10^3/uL Mean Platelet Volume 8.9 6.9-10.8 fL Neutrophils (%) (Auto) 74.9 37.0-80.0 % Lymphocytes (%) (Auto) 12.8 10.0-50.0 % Monocytes (%) (Auto) 10.5 0.0-12.0 % Eosinophils (%) (Auto) 1.3 0.0-7.0 % Basophils (%) (Auto) 0.5 0.0-2.0 % Neutrophils # (Auto) 6.2 1.6-8.6 10 ^3/uL Lymphocytes # (Auto) 1.1 0.4-5.4 10 ^3/uL Monocytes # (Auto) 0.9 0-1.3 10 ^3/uL Eosinophils # (Auto) 0.1 0-0.8 10 ^3/uL Basophils # (Auto) 0 0-0.2 10 ^3/uL Nucleated Red Blood Cells 0.1 % Sodium Level 139 136-145 mmol/L Potassium Level 3.8 3.5-5.1 mmol/L Chloride Level 103 98-107 mmol/L Carbon Dioxide Level 23 20-31 mmol/L Anion Gap 13 5-15 Blood Urea Nitrogen 14 9-23 mg/dL Creatinine 0.80 0.700-1.30 mg/dL Glomerular Filtration Rate Calc 89 >90 mL/min BUN/Creatinine Ratio 17.5 10.0-20.0 Serum Glucose 99 74-106 mg/dL Calcium Level 9.6 8.7-10.4 mg/dL Troponin I High Sensitivity 20 </=54 ng/L SEPSIS Sepsis Screen Date sepsis recognized/suspect: Mar 04, 2025 Time Sepsis recognized/suspect: 1531 Recent Procedure: No On Antibiotic Therapy: No Respiratory Rate >20: No Heart Rate >90: No Temp<36 C (96.8 F) or >38.3 C: No SBP <90 or MAP <65 mmHG: No New Acute Mental Status Change: No Is the patient on CPAP, BIPAP,: No Physician Orders Chest Portable (03/04/25 14:14) Urinalysis (03/04/25 14:14) Vital Signs Date Time Temp Pulse Resp B/P (MAP) Pulse Ox O2 Delivery O2 Flow Rate FiO2 03/04/25 19:22 98.2 74 18 121/81 (94) 94 98.2 03/04/25 15:31 72 19 95 Room Air* 0 21 03/04/25 15:31 98.1 72 19 130/90 (103) 95 98.1 03/04/25 14:10 98.7 65 20 171/85 97 98.7 Laboratory Tests Test 03/04/25 14:40 White Blood Count 8.3 10^3/uL (4.4-10.8) Assessment/Plan Assessment/Plan Displaced fractures of C1 and C2 Degenerative changes of the cervical spine s/p mechanical fall s/p neck collar Dysphagia likely due to above, r/o GI cause, achalasia Acute intractable headache likely due to above Cervical Spine CT: Displaced fracture of the base of the odontoid process. Displaced fractures of the right anterior arch of C1. Grade 1 anterolisthesis of C3 on C4 and C7 on T1. Degenerative changes of the cervical spine characterized by endplate osteophytosis and intervertebral disc space narrowing. Head CT: Mild left frontal scalp soft tissue swelling. Chronic sequelae of microangiopathy and atrophic cortical volume loss. Zofran 4 MG IV q4h sodium chloride 10 mL IV q8h Spine consult ordered GI consult ordered Left lung nodule History COPD, not under exacerbation Chest CT: Nonspecific ground-glass opacities within the left lower lobe, infectious / inflammatory process cannot be excluded in the appropriate clinical setting. 11 mm left upper lobe nodule. Chest X-ray: Patchy bilateral airspace disease in the lower lung murphy. Albuterol 2.5 mg q6h prn Ipratropium 0.5 mg q6h prn History of AFib Ascending aortic aneurysm Chest CT: 4.8 cm ascending aortic aneurysm. Lovenox 90 MG SC q12h History of GERD protonix 40mg Diet: NPO PUD prophylaxis: protonix 40mg DVT prophylaxis: Lovenox 90 MG SC q12h Goals of care: Full code, discussed for >26 minutes on 03/05/25 Plan discussed with patient Plan discussed with Dr. Fragoso Plan discussed with: Patient Date of Service: Mar 04, 2025 Billing Provider: JENIFER FRAGOSO MD Common Visit Codes: 93914-[id number] INP/OBS CARE (HIGH) Secondary Visit Codes: 28193-[id number] CARE PLAN 30 MINUTES JES RAY Mar 04, 2025 20:47 JENIFER FRAGOSO MD Mar 09, 2025 12:04
[2025-03-04] MEDS ORDERED: IPRATROPIUM BROM 0.5 MG/2.5ML INH SOL NEB PRN (21:00)
[2025-03-04] MEDS ORDERED: ONDANSETRON HCL 4 MG/2 ML VIAL IV PRN (21:00)
[2025-03-04] MEDS ORDERED: ALBUTEROL SULF 2.5 MG/0.5ML(0.5%) NEB SOLN NEB PRN (21:00)
[2025-03-04 21:51] VITALS: BP 121/81; PULSE 74; RESP 18; TEMP 98.2; O2SAT 94
[2025-03-04] MEDS: SODIUM CHLOR 0.9% PF (SALINE LOCK) 10ML VIAL/SYR IV SCH (22:05)
[2025-03-04] MEDS: PANTOPRAZOLE 40 MG/10 ML VIAL INJ IV ONE (22:05)
[2025-03-04] MEDS ORDERED: IOHEXOL 300 MG/ML 100ML BOTTLE IJ ONE (22:24)
--- NOTE | 2025-03-04 22:36 | ECG ---
[facility] Test Date: 2025-03-04 Test Time: 22:03:10 Pat Name: ROGELIO RUEDA Department: Room: 0205 Gender: M Tour Operator: RICH : 1945 Requested By: JES YOU Order Number: [id number] Reading MD: John White Measurements Intervals Masterson Rate: 117 P: 0 RI: 0 QRS: -15 QRSD: 81 T: 68 QT: 353 QTc: 493 Interpretive Statements Atrial fibrillation Borderline left axis deviation Anteroseptal infarct, old Borderline ST depression, anterolateral leads Electronically Signed On 03-07-2025 15:01:22 PDT by John White Please click the below link to view image of tracing.
[2025-03-04 23:09] VITALS: BP 136/102; PULSE 92; RESP 20; TEMP 97.2; O2SAT 92
--- NOTE | 2025-03-04 23:11 | DVH ---
EXAM: CT HEAD WITHOUT CONTRAST INDICATION: s/p fall TECHNIQUE: CT of the head without intravenous contrast. Radiation Dose : 1. Head: CT Dose: CTDI volume is 54.81 mGy. Dose-length product is 1.71 mGy*cm The dose indicators for CT are the volume Computed Tomography (CT) Dose Index (CTDIvol) and the Dose Length Product (DLP), and are measured in units of mGy and mGy-cm, respectively. These indicators are not patient dose, but values generated from the CT scanner acquisition factors. The report includes radiation exposure data for exposures received during this examination. COMPARISON: None FINDINGS: There is no evidence of acute intracranial hemorrhage, extra-axial collection, mass effect, midline s hift, herniation or hydrocephalus. Increased prominence of the ventricles, sulci and cisterns consistent with sequelae of atrophic corti kinza volume loss. The whittaker-white differentiation is intact. Moderate diffuse confluent periventricular and subcortical white matter hypoattenuation is nonspecifi c but may be related to small vessel ischemic disease. The visualized paranasal sinuses and left mastoid air cells are clear. Right mastoid air cell opacifi cation. Mild left frontal scalp soft tissue swelling. The surrounding soft tissues and osseous structures are otherwise unremarkable. IMPRESSION: 1. No acute intracranial abnormality. 2. Mild left frontal scalp soft tissue swelling. 3. Chronic sequelae of microangiopathy and atrophic cortical volume loss. Radiation optimization: All CT scans at this facility use at least one of these dose optimization hakeem hniques: automated exposure control mA and/or kV adjustment per patient size (includes targeted exam s where dose is matched to clinical indication) or iterative reconstruction.
[2025-03-04] MEDS: METOPROLOL TARTRATE 25 MG TAB PO ONE (23:15)
--- NOTE | 2025-03-04 23:17 | DVH ---
CLINICAL HISTORY: C1 VERTEBRAL FX S/P FALL TECHNIQUE: CT exam of the cervical spine was performed without intravenous contrast. This exam was pe rformed according to our departmental dose optimization program. Up-to-date CT equipment and radiatio n dose reduction techniques are utilized as appropriate. CTDI 24.96 DLP 24.96 COMPARISON: None FINDINGS: Displaced fracture of the base of the odontoid process. Displaced fractures of the right anterior ar ch of C1. Grade 1 anterolisthesis of C3 on C4 and C7 on T1. Degenerative changes of the cervical spine characte rized by endplate osteophytosis and intervertebral disc space narrowing. Uncovertebral and facet hyp ertrophy contributes to multilevel neural foraminal narrowing. Emphysema is demonstrated within lung apices. The soft tissues of the neck are unremarkable. IMPRESSION: 1. Displaced fractures of C1 and C2 as above, likely acute given appearance, though clinical correlat ion is suggested.. 2. Degenerative changes of the cervical spine as detailed.
--- NOTE | 2025-03-04 23:24 | DVH ---
EXAM: CT CHEST WITH CONTRAST History: r/o esophageal mass, stricture, r/o lung nodules Comparison Study: CT CT ANGIO CHEST CONTRAST on DOS: 11/25/22 TECHNIQUE: A digital assistant kitchen manager image was obtained. During the uneventful, intravenous administration of c ontrast material, multislice data acquisition was obtained through the chest. The data set was subseq uently reconstructed into axial, coronal, and sagittal images. Radiation Dose : CTDI vol 19.01 mGy, DLP 19.01 mGy*cm. Findings: Evaluation is degraded by respiratory motion. Lungs: There is emphysema. There is an 11 mm left upper lobe nodule. There are ground-glass opacities most pronounced within the left lower lobe. Pleura: Pleural-parenchymal plaques are redemonstrated. Heart/Great vessels: No cardiomegaly or pericardial effusion. Severe coronary artery calcifications. 4.8 cm ascending aortic aneurysm. Mediastinum: Unremarkable. Soft tissues/Bones: Thoracic DISH. Upper abdomen: Cholelithiasis. Impression: 1. Nonspecific ground-glass opacities within the left lower lobe, infectious / inflammatory process c annot be excluded in the appropriate clinical setting. 2. 11 mm left upper lobe nodule. Per Fleischner society criteria, consider CT at 3 months, PET-CT, or tissue sampling. 3. 4.8 cm ascending aortic aneurysm. 4. Additional findings as detailed.
[2025-03-05] VITALS (11 sets, daily range): BP systolic 124–152; BP diastolic 72–106; PULSE 63–116; RESP 17–20; TEMP 97.3–98.4; O2SAT 92–98
[2025-03-05 02:12] LABS: Urine Protein, UAD 1+ (Negative)
[2025-03-05 02:32] LABS: Phencyclidine Screen, Urine Neg (NEGATIVE)
[2025-03-05] MEDS: HYDROmorphone HCL 2 MG/ML VL/or syr IV ONE (02:38)
[2025-03-05 02:42] LABS: Amphetamine Screen, Urine Neg (NEGATIVE); Barbiturate Scree,Urine Neg (NEGATIVE); Benzodiazephine Screen, Urine Neg (NEGATIVE); Cannabinoid Screen, Urine Neg (NEGATIVE); Cocaine Screen, Urine Neg (NEGATIVE); Opiate Scree,Urine Pos (NEGATIVE)
[2025-03-05] MEDS: DOXYCYCLINE 100MG/100ML 100 ML IV ONE (03:13)
[2025-03-05] MEDS: PANTOPRAZOLE 40 MG/10 ML VIAL INJ IV SCH (09:15)
[2025-03-05] MEDS: METOPROLOL TARTRATE 25 MG TAB PO SCH (09:17)
[2025-03-05] MEDS: DOXYCYCLINE 100MG/100ML 100 ML IV SCH (09:17)
[2025-03-05] MEDS: ENOXAPARIN SOD 100 MG/1 ML SYRINGE SC SCH (09:17)
[2025-03-05 11:09] LABS: Hematocrit 50.7 % (41.0-53.0); Hemoglobin 16.9 g/dL (13.5-17.5); Mean Corpuscular Hemoglobin 33.3 pg (28.0-32.0); Mean Corpuscular Volume 100.1 fL (80.0-100.0); Nucleated Red Blood Cells % 0.2 %
[2025-03-05 11:28] LABS: Alanine Aminotransferase 38 U/L (7-40); Albumin 3.8 g/dL (3.2-4.8); Alkaline Phosphatase 83 U/L (46-116); Anion Gap 12 (5-15); BUN/Creatinine Ratio 15.3 (10.0-20.0); Blood Urea Nitrogen 13 mg/dL (9-23); Calcium 9.4 mg/dL (8.7-10.4); Carbon Dioxide 23 mmol/L (20-31); Chloride 106 mmol/L (98-107); Glucose 100 mg/dL (74-106); Potassium 3.9 mmol/L (3.5-5.1); Sodium 141 mmol/L (136-145); Total Protein 6.4 g/dL (5.7-8.2)
[2025-03-05 11:29] LABS: Bilirubin, Total 0.7 mg/dL (0.2-1.0)
[2025-03-05] MEDS ORDERED: MORPHINE SULFATE 4 MG/ML SYR/VIAL IV PRN (11:30)
[2025-03-05 11:42] LABS: Alanine Aminotransferase 40.0 U/L (7-40); Albumin 3.8 g/dL (3.2-4.8); Alkaline Phosphatase 82.0 U/L (46-116); Bilirubin, Total 0.7 mg/dL (0.2-1.0); Total Protein 6.4 g/dL (5.7-8.2)
[2025-03-05 11:43] LABS: Bilirubin, Direct 0.3 mg/dL (<0.3)
[2025-03-05] MEDS: HYDROmorphone HCL 2 MG/ML VL/or syr IV PRN (12:00)
[2025-03-05] MEDS: D5W 5% 1,000 ML IV SCH (15:19)
--- NOTE | 2025-03-05 18:00 | DVHPN2 ---
Subjective I am assuming the care of the patient from today onwards. Patient is here for difficulty in swallowing with a known history of C1-C2 displaced fracture within the color. 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 Medications Current Medications Medications Dose Ordered Sig/Rodrigo Route Start Time Stop Time Status Last Admin Dose Admin Sodium Chloride 10 ml Q8HR IV 03/04/25 22:00 03/05/25 13:52 10 ML Ondansetron HCl 4 mg Q4HP PRN IV 03/04/25 21:00 Albuterol 2.5 mg Q6HPRN PRN NEB 03/04/25 21:00 Ipratropium [place] 0.5 mg Q6HPRN PRN NEB 03/04/25 21:00 Pantoprazole Sodium 40 mg DAILY IV 03/05/25 10:00 03/05/25 09:15 40 MG Metoprolol Tartrate 25 mg BID PO 03/05/25 10:00 Enoxaparin Sodium 90 mg Q12HR SC 03/05/25 10:00 03/05/25 09:17 90 MG Doxycycline Hyclate 100 ml @ 50 mls/hr Q12HR IV 03/05/25 10:00 03/05/25 09:17 50 MLS/HR Ceftriaxone Sodium 50 ml @ 100 mls/hr DAILY@09 IV 03/06/25 09:00 Hydromorphone HCl 0.25 mg Q4HPRN PRN IV 03/05/25 11:45 03/05/25 12:00 0.25 MG Dextrose 1,000 ml @ 75 mls/hr [id number] IV 03/05/25 15:15 03/05/25 15:19 75 MLS/HR Quetiapine Fumarate 50 mg HS PO 03/05/25 22:00 Laboratory Results Laboratory Tests 03/05/25 09:45 Chemistry Test 03/05/25 09:45 Albumin 3.8 g/dL (3.2-4.8) Calcium Level 9.4 mg/dL (8.7-10.4) Total Protein 6.4 g/dL (5.7-8.2) LFT Test 03/05/25 09:45 Alanine Aminotransferase (ALT) 40 U/L (7-40) Alkaline Phosphatase 82 U/L (46-116) Aspartate Amino Transferase (AST) 36 U/L (13-40) Direct Bilirubin 0.3 mg/dL (<0.3) Total Bilirubin 0.7 mg/dL (0.2-1.0) Urinalysis Test 03/05/25 00:40 Urine Color Yellow (Yellow) Urine Clarity Turbid (Clear) H Urine pH 6.0 (5.0-9.0) Urine Specific [place] > 1.050 (1.001-1.035) Urine Protein 1+ (Negative) H Urine Ketones 2+ (Negative) H Urine Blood 1+ /uL (Negative) H Urine Nitrite Negative (Negative) Urine Bilirubin Negative (Negative) Urine Urobilinogen 2 mg/dL (Negative) H Urine Leukocyte Esterase 1+ /uL (Negative) Urine RBC 17 /hpf (0 - 3) Urine Microscopic WBC 8 /HPF (0-3) H Urine Squamous Epithelial Cells Mod /hpf (<5) Urine Bacteria None seen /hpf (None Seen) Urine Mucus Few (None Seen) Urine Glucose Normal mg/dL (Normal) Microbiology Microbiology Date/Time Source Procedure Growth Status 03/05/25 00:40 Nose MRSA Screen - Final Complete Assessment/Plan Assessment/Plan 79-year-old male with a known history of chronic AFib, hypertension, GERD, COPD, chronic tobacco use disorder, previous history of fall with C1-C2 displaced fracture status post cervical collar presented to the hospital with difficulty in swallowing 1. Difficulty in swallowing 2. C1-C2 displaced neck fracture status post C-collar with a previous history of fall 3. COPD, not in exacerbation next 4. History of chronic tobacco use disorder next 5. GERD 6. Paroxysmal AFib -swallow evaluation, DVT GI prophylaxis, spine surgery consultation Plan discussed with: Patient, Other My Orders Orders - CATRACHITA GONZALEZ MD Procedure Category Date Status Time Hydromorphone PHA 03/05/25 In Process Injection (Dilaudid 11:45 D5w 5% (Dextrose 5%) PHA 03/05/25 In Process 15:15 Apply: JENNIFER 03/05/25 In Process 15:13 Quetiapine Fumarate PHA 03/05/25 In Process Tablet (Seroquel Tab 22:00 Date of Service: Mar 05, 2025 Billing Provider: CATRACHITA GONZALEZ MD Common Visit Codes: [id number] INP/OBS CARE(HIGH) CATRACHITA GONZALEZ MD Mar 05, 2025 18:00
[2025-03-06] VITALS (9 sets, daily range): BP systolic 111–146; BP diastolic 85–105; PULSE 50–82; RESP 16–20; TEMP 98–99.1; O2SAT 91–95
[2025-03-06] MEDS: diphenhydrAMINE HCL 50 MG/1 ML VL IV ONE (05:45)
[2025-03-06] MEDS: dilTIAZem 120MG ER CAP PO ONE (16:48)
--- NOTE | 2025-03-06 17:55 | DVHPN2 ---
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 Medications Current Medications Medications Dose Ordered Sig/Rodrigo Route Start Time Stop Time Status Last Admin Dose Admin Sodium Chloride 10 ml Q8HR IV 03/04/25 22:00 03/06/25 15:19 10 ML Ondansetron HCl 4 mg Q4HP PRN IV 03/04/25 21:00 Albuterol 2.5 mg Q6HPRN PRN NEB 03/04/25 21:00 Cancel Ipratropium [place] 0.5 mg Q6HPRN PRN NEB 03/04/25 21:00 Cancel Pantoprazole Sodium 40 mg DAILY IV 03/05/25 10:00 03/06/25 10:25 40 MG Metoprolol Tartrate 25 mg BID PO 03/05/25 10:00 03/06/25 10:31 25 MG Enoxaparin Sodium 90 mg Q12HR SC 03/05/25 10:00 03/06/25 10:25 90 MG Doxycycline Hyclate 100 ml @ 50 mls/hr Q12HR IV 03/05/25 10:00 03/06/25 10:24 50 MLS/HR Ceftriaxone Sodium 50 ml @ 100 mls/hr DAILY@09 IV 03/06/25 09:00 03/06/25 10:25 100 MLS/HR Hydromorphone HCl 0.25 mg Q4HPRN PRN IV 03/05/25 11:45 03/06/25 15:18 0.25 MG Dextrose 1,000 ml @ 75 mls/hr [id number] IV 03/05/25 15:15 10/25/25 15:19 75 MLS/HR Quetiapine Fumarate 50 mg HS PO 03/05/25 22:00 Trazodone HCl 100 mg HS PO 03/06/25 22:00 Sennosides 8.6 mg QHSP PRN PO 03/06/25 16:00 Diltiazem HCl 120 mg DAILY PO 03/07/25 10:00 Prednisone 40 mg DAILY PO 03/07/25 10:00 Laboratory Results Chemistry Test 03/06/25 17:26 Calcium Level Pending Magnesium Level Pending Urinalysis Test 03/05/25 00:40 Urine Color Yellow (Yellow) Urine Clarity Turbid (Clear) H Urine pH 6.0 (5.0-9.0) Urine Specific [place] > 1.050 (1.001-1.035) Urine Protein 1+ (Negative) H Urine Ketones 2+ (Negative) H Urine Blood 1+ /uL (Negative) H Urine Nitrite Negative (Negative) Urine Bilirubin Negative (Negative) Urine Urobilinogen 2 mg/dL (Negative) H Urine Leukocyte Esterase 1+ /uL (Negative) Urine RBC 17 /hpf (0 - 3) Urine Microscopic WBC 8 /HPF (0-3) H Urine Squamous Epithelial Cells Mod /hpf (<5) Urine Bacteria None seen /hpf (None Seen) Urine Mucus Few (None Seen) Urine Glucose Normal mg/dL (Normal) Microbiology Microbiology Date/Time Source Procedure Growth Status 03/05/25 00:40 Nose MRSA Screen - Final Complete Assessment/Plan Assessment/Plan 79-year-old male with a known history of chronic AFib, hypertension, GERD, COPD, chronic tobacco use disorder, previous history of fall with C1-C2 displaced fracture status post cervical collar presented to the hospital with difficulty in swallowing 1. Difficulty in swallowing 2. C1-C2 displaced neck fracture status post C-collar with a previous history of fall 3. COPD, not in exacerbation next 4. History of chronic tobacco use disorder next 5. GERD 6. Paroxysmal AFib -resume diltiazem, -swallow evaluation, DVT GI prophylaxis, spine surgery consultation Plan discussed with: Patient, Spouse My Orders Orders - CATRACHITA GONZALEZ MD Procedure Category Date Status Time Trazodone Hcl PHA 03/06/25 In Process (Desyrel) 22:00 Senna Pod Tablet PHA 03/06/25 In Process (Senokot Tablet) 16:00 Diltiazem Er Capsule PHA 03/07/25 In Process (Cardizem Er Capsul 10:00 Prednisone Tablet PHA 03/07/25 In Process 10:00 Basic Metabolic Panel LAB 03/06/25 In Process 16:40 Complete Blood Count LAB 03/06/25 In Process 16:40 Magnesium LAB 03/06/25 In Process 16:41 Date of Service: Mar 06, 2025 Billing Provider: CATRACHITA GONZALEZ MD Common Visit Codes: [id number] INP/OBS CARE(HIGH) CATRACHITA GONZALEZ MD Mar 06, 2025 17:55
[2025-03-06 18:06] LABS: Chloride 107 mmol/L (98-107); Potassium 3.6 mmol/L (3.5-5.1); Sodium 144 mmol/L (136-145)
[2025-03-06 18:07] LABS: Anion Gap 9 (5-15); Carbon Dioxide 28 mmol/L (20-31)
[2025-03-06 18:08] LABS: Calcium 9.1 mg/dL (8.7-10.4)
[2025-03-06 18:12] LABS: Glucose 100 mg/dL (74-106); Hematocrit 48.7 % (41.0-53.0); Hemoglobin 16.2 g/dL (13.5-17.5); Mean Corpuscular Hemoglobin 33.2 pg (28.0-32.0); Mean Corpuscular Volume 100.1 fL (80.0-100.0); Nucleated Red Blood Cells % 0.2 %
[2025-03-06 18:13] LABS: BUN/Creatinine Ratio 16.0 (10.0-20.0); Blood Urea Nitrogen 13 mg/dL (9-23)
[2025-03-07] VITALS (8 sets, daily range): BP systolic 120–142; BP diastolic 83–90; PULSE 53–85; RESP 16–17; TEMP 97.8–98.2; O2SAT 90–94
[2025-03-07 08:31] LABS: COVID19 ANTIGEN SOFIA FIA NEGATIVE (NEGATIVE)
[2025-03-07] MEDS: dilTIAZem 120MG ER CAP PO SCH (10:00)
[2025-03-07] MEDS: predniSONE 20 MG TAB PO SCH (10:00)
[2025-03-07] MEDS: SENNA 8.6 MG TAB PO PRN (13:39)
--- NOTE | 2025-03-07 16:30 | DVHPN2 ---
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 Patient is going for barium swallow study today. 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 Medications Current Medications Medications Dose Ordered Sig/Rodrigo Route Start Time Stop Time Status Last Admin Dose Admin Sodium Chloride 10 ml Q8HR IV 03/04/25 22:00 03/07/25 15:11 10 ML Ondansetron HCl 4 mg Q4HP PRN IV 03/04/25 21:00 Albuterol 2.5 mg Q6HPRN PRN NEB 03/04/25 21:00 Cancel Ipratropium [place] 0.5 mg Q6HPRN PRN NEB 03/04/25 21:00 Cancel Pantoprazole Sodium 40 mg DAILY IV 03/05/25 10:00 03/07/25 09:44 40 MG Enoxaparin Sodium 90 mg Q12HR SC 03/05/25 10:00 03/07/25 09:44 90 MG Doxycycline Hyclate 100 ml @ 50 mls/hr Q12HR IV 03/05/25 10:00 03/07/25 11:49 50 MLS/HR Ceftriaxone Sodium 50 ml @ 100 mls/hr DAILY@09 IV 03/06/25 09:00 03/07/25 09:44 100 MLS/HR Hydromorphone HCl 0.25 mg Q4HPRN PRN IV 03/05/25 11:45 03/07/25 11:40 0.25 MG Dextrose 1,000 ml @ 75 mls/hr [id number] IV 03/05/25 15:15 03/06/25 18:17 75 MLS/HR Quetiapine Fumarate 50 mg HS PO 03/05/25 22:00 Trazodone HCl 100 mg HS PO 03/06/25 22:00 Sennosides 8.6 mg QHSP PRN PO 03/06/25 16:00 03/07/25 13:39 8.6 MG Diltiazem HCl 120 mg DAILY PO 03/07/25 10:00 Prednisone 40 mg DAILY PO 03/07/25 10:00 Laboratory Results Laboratory Tests 03/06/25 17:26 Chemistry Test 03/06/25 17:26 Calcium Level 9.1 mg/dL (8.7-10.4) Magnesium Level 2.0 mg/dL (1.6-2.6) Urinalysis Test 03/05/25 00:40 Urine Color Yellow (Yellow) Urine Clarity Turbid (Clear) H Urine pH 6.0 (5.0-9.0) Urine Specific [place] > 1.050 (1.001-1.035) Urine Protein 1+ (Negative) H Urine Ketones 2+ (Negative) H Urine Blood 1+ /uL (Negative) H Urine Nitrite Negative (Negative) Urine Bilirubin Negative (Negative) Urine Urobilinogen 2 mg/dL (Negative) H Urine Leukocyte Esterase 1+ /uL (Negative) Urine RBC 17 /hpf (0 - 3) Urine Microscopic WBC 8 /HPF (0-3) H Urine Squamous Epithelial Cells Mod /hpf (<5) Urine Bacteria None seen /hpf (None Seen) Urine Mucus Few (None Seen) Urine Glucose Normal mg/dL (Normal) Microbiology Microbiology Date/Time Source Procedure Growth Status 03/05/25 00:40 Nose MRSA Screen - Final Complete Assessment/Plan Assessment/Plan 79-year-old male with a known history of chronic AFib, hypertension, GERD, COPD, chronic tobacco use disorder, previous history of fall with C1-C2 displaced fracture status post cervical collar presented to the hospital with difficulty in swallowing 1. Difficulty in swallowing 2. C1-C2 displaced neck fracture status post C-collar with a previous history of fall 3. COPD, not in exacerbation next 4. History of chronic tobacco use disorder next 5. GERD 6. Paroxysmal AFib -resume diltiazem, -barium swallow study today -swallow evaluation, DVT GI prophylaxis, spine surgery consultation Plan discussed with: Patient, Spouse My Orders Orders - CATRACHITA GONZALEZ MD Procedure Category Date Status Time Pt Request For Service PT 03/07/25 Logged 12:39 * Services Mgr CONS 03/07/25 Transmitted Consult 16:28 Date of Service: Mar 07, 2025 Billing Provider: CATRACHITA GONZALEZ MD Common Visit Codes: [id number] INP/OBS CARE(HIGH) CATRACHITA GONZALEZ MD Mar 07, 2025 16:30
--- NOTE | 2025-03-07 16:37 | DVHPN2 ---
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 vital signs Vital Sign Date Time Temp Pulse Resp B/P (MAP) Pulse Ox O2 Delivery O2 Flow Rate FiO2 03/07/25 13:00 97.8 85 17 127/90 (102) 94 97.8 03/07/25 08:00 Room Air* 0 21 Total Intake and Output 03/06/25 03/06/25 03/07/25 15:00 23:00 07:00 Intake Total 150 ml 900 ml Output Total 500 ml Balance 150 ml 400 ml medications Current Medications Medications Dose Ordered Sig/Rodrigo Route Start Time Stop Time Status Last Admin Dose Admin Sodium Chloride 10 ml Q8HR IV 03/04/25 22:00 03/07/25 15:11 10 ML Ondansetron HCl 4 mg Q4HP PRN IV 03/04/25 21:00 Albuterol 2.5 mg Q6HPRN PRN NEB 03/04/25 21:00 Cancel Ipratropium [place] 0.5 mg Q6HPRN PRN NEB 03/04/25 21:00 Cancel Pantoprazole Sodium 40 mg DAILY IV 03/05/25 10:00 03/07/25 09:44 40 MG Enoxaparin Sodium 90 mg Q12HR SC 03/05/25 10:00 03/07/25 09:44 90 MG Doxycycline Hyclate 100 ml @ 50 mls/hr Q12HR IV 03/05/25 10:00 03/07/25 11:49 50 MLS/HR Ceftriaxone Sodium 50 ml @ 100 mls/hr DAILY@09 IV 03/06/25 09:00 03/07/25 09:44 100 MLS/HR Hydromorphone HCl 0.25 mg Q4HPRN PRN IV 03/05/25 11:45 03/07/25 11:40 0.25 MG Dextrose 1,000 ml @ 75 mls/hr [id number] IV 03/05/25 15:15 03/06/25 18:17 75 MLS/HR Quetiapine Fumarate 50 mg HS PO 03/05/25 22:00 Trazodone HCl 100 mg HS PO 03/06/25 22:00 Sennosides 8.6 mg QHSP PRN PO 03/06/25 16:00 03/07/25 13:39 8.6 MG Diltiazem HCl 120 mg DAILY PO 03/07/25 10:00 Prednisone 40 mg DAILY PO 03/07/25 10:00 objective HEENT pupils are reactive Neck collar is in place CV is S1-S2 regular rate and rhythm Diminished person patient had GI positive bowel sounds Extremity no edema 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 three times a day with meals He is awaiting spine surgical evaluation Dietary Evaluation Review Comments: 1) Initiate MVI @ 1 tb qd 2) Initiate vitamin C @ 500 mg bid and zinc sulfate @ 220 mg qd for 7 days 3) Follow-up with speech therapy r/t swallow study 4) If patient remains NPO > 7 days, consider EN/TPN to meet at least 75% estimated daily needs 5) Advance to cardiac diet when medically feasible 6) Follow-up with cardiology 7) Continue to monitor I&O, labs, and skin integrity Expected Outcomes/Goals: 1) patient to receive nutritional support within 7 days of NPO status 2) wounds to improve 3) diet to advance 4) f/u in 3-5 days Plan discussed with: Patient TALISHA CRAFT MD Mar 07, 2025 16:37
[2025-03-08] VITALS (9 sets, daily range): BP systolic 118–155; BP diastolic 85–102; PULSE 53–100; RESP 16–20; TEMP 97.8–98.7; O2SAT 92–94
--- NOTE | 2025-03-08 09:59 | DVHINCON2 ---
Consultation - Surgical Date Seen: Mar 08, 2025 (notified of consult 03/07 15:28, called Fam KRUGER for update neuro intact, patient is ambulating, in a Pan[place] J collar) Referring Physician Referring Physician Attending Doctor: Tomás Hayes MD Resident Creating Document: CORYJES Reason for Consultation fall 2 weeks ago dx C1 fx, increased difficulty swallowing History of Present Illness History of Present Illness History of Present Illness Patient is a 79-year-old male with past medical history of AFib, COPD, GERD presented to [facility] ED with complaint of difficulty swallowing and dizziness. 1 week ago, on Friday morning, the patient experienced a fall while standing and walking a few steps. He hit his head and lost consciousness for approximately 2-3 minutes. Post-fall, he developed visible bruises in this forehead, and was taken to [facility], where diagnosed with C1 vertebra fracture. He was subsequently transferred to [facility] for rehabilitation and then sent to [facility] today. Since the fall, the patient reports difficulty swallowing and occipital headache. He started experiencing dysphagia to both liquids and solids 3 days ago. On evaluation in the ED, patient is afebrile, hypoxic and tachycardia. Initial labs show within normal limit. Chest X-ray shows patchy bilateral airspace disease in the lower lung mruphy. Patient is admitted for further evaluation and management. Past Medical/Surgical History Past Medical/Surgical History Cardiovascular: AFIB Pulmonary: COPD GI: GERD Past Surgical History: Appendectomy, Cataract Removal, Tonsillectomy Family and Social History Family and Social History Family History: None Smoke: No ALCOHOL: none Drugs: None Allergies and medications Allergies: Coded Allergies: NO KNOWN ALLERGIES (Unverified , 11/25/21) Home Meds Active Scripts Prednisone (Prednisone) 20 Mg Tab, 40 MG PO DAILY for 5 Days, #10 MG Prov:SAMINA COLUNGA MD 12/16/23 Azithromycin (ZITHROMAX TABLET) 250 Mg Tb, 250 MG PO DAILY for 5 Days, #5 TAB Prov:SAMINA COLUNGA MD 12/16/23 Clindamycin HCl (Clindamycin Hydrochloride) 300 Mg Cap, 300 MG PO TID, #21 CAP Prov:TK TODD MD 12/05/22 Diltiazem HCl (Diltiazem Hydrochloride) 120 Mg Tab, 120 MG PO DAILY PRN for 7 Days, #7 TAB Prov:CITLALI FRITZ MD 11/28/21 Docusate Sodium (Docusate Sodium) 100 Mg Tab, 100 MG PO DAILY PRN for 20 Days, #20 TAB Prov:CITLALI FRITZ MD 11/28/21 Senna (Senna Lax) 8.6 Mg Tab, 8.6 MG PO QHSP PRN for 20 Days, #20 MG Prov:CITLALI FRITZ MD 11/28/21 Acetaminophen W/ Codeine (Tylenol W/Cod #3) 1 Tab Tb, 1 TAB PO QID PRN, #10 TAB 0 Refills Prov:JAYLEN YEN 11/25/21 Reported Medications Trazodone Hcl (Trazodone Hcl) 100 Mg Tab, 2 TAB PO QPM for SLEEP 12/04/22 Magnesium Hydroxide (Milk Of Magnesia) 400 Mg/5 Ml Charla, 400 MG PO DAILY PRN for CONSTIPATION, ML 12/04/22 Acetaminophen (Tylenol) 325 Mg Tb, 325 MG PO DAILY PRN for KNEE PAIN, TAB 12/04/22 Ibuprofen (Ibuprofen) 200 Mg Cap, 200 MG PO DAILY PRN for KNEE PAIN, MG 12/04/22 Aspirin (Aspirin) 325 Mg Tab, 325 MG PO DAILY, MG 12/04/22 Pantoprazole Sodium Sesquihydr (Pantoprazole Sodium) 40 Mg Tab, 1 TAB PO DAILY 11/24/22 Review of systems Review of Systems: HEENT:Abnormal (Brusing to forehead, nose), NEURO:Normal (intact) Examination Vital signs Imaging: ORDERING PHYSICIAN: JES RAY PROCEDURE(s): CS2 - CERVICAL WITHOUT CONTRAST REASON: C1 VERTEBRAL FX S/P FALL ORDER NUMBER(s): [id number], ACCESSION NUMBER(s): [id number] CLINICAL HISTORY: C1 VERTEBRAL FX S/P FALL TECHNIQUE: CT exam of the cervical spine was performed without intravenous contrast. This exam was performed according to our departmental dose optimization program. Up-to-date CT equipment and radiation dose reduction techniques are utilized as appropriate. CTDI 24.96 DLP 24.96 COMPARISON: None FINDINGS: Displaced fracture of the base of the odontoid process. Displaced fractures of the right anterior arch of C1. Grade 1 anterolisthesis of C3 on C4 and C7 on T1. Degenerative changes of the cervical spine characterized by endplate osteophytosis and intervertebral disc space narrowing. Uncovertebral and facet hypertrophy contributes to multilevel neural foraminal narrowing. Emphysema is demonstrated within lung apices. The soft tissues of the neck are unremarkable. IMPRESSION: 1. Displaced fractures of C1 and C2 as above, likely acute given appearance, though clinical correlation is suggested.. 2. Degenerative changes of the cervical spine as detailed. Vital Signs Date Time Temp Pulse Resp B/P (MAP) Pulse Ox O2 Delivery O2 Flow Rate FiO2 03/08/25 04:35 98.7 58 16 153/93 (113) 92 98.7 03/07/25 20:00 Room Air* 0 21 Medications Current Medications Medications (Trade) Dose Ordered Sig/Rodrigo Route PRN Reason Start Time Stop Time Status Last Admin Diltiazem HCl (Cardizem ER Capsule) 120 mg DAILY PO 03/07/25 10:00 Prednisone 40 mg DAILY PO 03/07/25 10:00 Laboratory Labs Test 03/07/25 07:49 03/06/25 17:26 03/05/25 09:45 03/05/25 00:40 Range/Units Influenza Type A Antigen Negative Negative Influenza Type B Antigen Negative Negative SARS-CoV-2 Antigen (Rapid) Negative NEGATIVE White Blood Count 7.0 4.4-10.8 10^3/uL Red Blood Count 4.87 4.5-5.90 10^6/uL Hemoglobin 16.2 13.5-17.5 g/dL Hematocrit 48.7 41.0-53.0 % Mean Corpuscular Volume 100.1 H 80.0-100.0 fL Mean Corpuscular Hemoglobin 33.2 H 28.0-32.0 pg Mean Corpuscular Hemoglobin Concent 33.2 32.0-36.0 g/dL Red Cell Distribution Width 13.6 11.8-14.3 % Platelet Count 188 140-450 10^3/uL Mean Platelet Volume 9.0 6.9-10.8 fL Neutrophils (%) (Auto) 72.1 37.0-80.0 % Lymphocytes (%) (Auto) 14.9 10.0-50.0 % Monocytes (%) (Auto) 10.7 0.0-12.0 % Eosinophils (%) (Auto) 1.9 0.0-7.0 % Basophils (%) (Auto) 0.4 0.0-2.0 % Neutrophils # (Auto) 5.0 1.6-8.6 10 ^3/uL Lymphocytes # (Auto) 1.0 0.4-5.4 10 ^3/uL Monocytes # (Auto) 0.7 0-1.3 10 ^3/uL Eosinophils # (Auto) 0.1 0-0.8 10 ^3/uL Basophils # (Auto) 0 0-0.2 10 ^3/uL Nucleated Red Blood Cells 0.2 % Sodium Level 144 136-145 mmol/L Potassium Level 3.6 3.5-5.1 mmol/L Chloride Level 107 98-107 mmol/L Carbon Dioxide Level 28 20-31 mmol/L Anion Gap 9 5-15 Blood Urea Nitrogen 13 9-23 mg/dL Creatinine 0.81 0.700-1.30 mg/dL Glomerular Filtration Rate Calc 89 >90 mL/min BUN/Creatinine Ratio 16.0 10.0-20.0 Serum Glucose 100 74-106 mg/dL Calcium Level 9.1 8.7-10.4 mg/dL Magnesium Level 2.0 1.6-2.6 mg/dL Total Bilirubin 0.7 0.2-1.0 mg/dL Direct Bilirubin 0.3 <0.3 mg/dL Aspartate Amino Transferase (AST) 36 13-40 U/L Alanine Aminotransferase (ALT) 40 7-40 U/L Alkaline Phosphatase 82 46-116 U/L Total Protein 6.4 5.7-8.2 g/dL Albumin 3.8 3.2-4.8 g/dL Urine Color Yellow Yellow Urine Clarity Turbid H Clear Urine pH 6.0 5.0-9.0 Urine Specific [place] > 1.050 H 1.001-1.035 Urine Protein 1+ H Negative Urine Ketones 2+ H Negative Urine Blood 1+ H Negative /uL Urine Nitrite Negative Negative Urine Bilirubin Negative Negative Urine Urobilinogen 2 H Negative mg/dL Urine Leukocyte Esterase 1+ Negative /uL Urine RBC 17 0 - 3 /hpf Urine Microscopic WBC 8 H 0-3 /HPF Urine Squamous Epithelial Cells Mod <5 /hpf Urine Bacteria None seen None Seen /hpf Urine Mucus Few None Seen Urine Glucose Normal Normal mg/dL Urine Opiates Screen Pos NEGATIVE Urine Fentanyl Screen Pos NEGATIVE Urine Barbiturates Screen Neg NEGATIVE Urine Phencyclidine Screen Neg NEGATIVE Urine Amphetamines Screen Neg NEGATIVE Urine Benzodiazepines Screen Neg NEGATIVE Urine Cocaine Screen Neg NEGATIVE Urine Cannabinoids Screen Neg NEGATIVE Test 03/04/25 14:40 Range/Units Troponin I High Sensitivity 20 </=54 ng/L Microbiology Date/Time Source Procedure Growth Status 03/05/25 00:40 Nose MRSA Screen - Final Complete Examination: GENERAL:Normal, HEENT:Abnormal (resolving ecchymosi to forehead), NECK:Abnormal (iqugmiut-j collar in place properly fitted), CVS:Normal, ABDOMEN:Normal, MSK:Normal, SKIN:Abnormal ( Bruises Forehead, nose, bilateral arm, bilateral knee), NEURO:Normal (intact, ambulatory, sensation intact strength 4/5 all 4 ext), :Normal Problem List/Assessment/Plan Problems: (1) Closed fracture of odontoid process of axis (2) Fracture of anterior arch of atlas Assessment and Plan Displaced fracture of the base of the odontoid process. Displaced fractures of the right anterior arch of C1. Grade 1 anterolisthesis of C3 on C4 and C7 on T1. Degenerative changes of the cervical spine characterized by endplate osteophytosis and intervertebral disc space narrowing. Pending MRI of the C-spine to evaluate for ligament damage Spine is recommending evaluation from a neurosurgical provider Since both C1 and C2 are displaced there is a high propensity for this to be unstable fracture. Therefore requiring neurosurgical consult the goal is to achieve alignment, fusion and preserve neurologic function. There are no neurosurgical services available in the [facility] and we recommend transfer to a higher level of care for neurosurgical evaluation possible surgery. Continue care and support per admitting team's discretion Patient is to keep the Panola J collar on at all times- currently the sit of the collar is appropriate and correct the patient is able to swallow freely it is not restrictive to the swallowing mechanism. Patient needs evaluation for swallowing difficulty Discussed treatment options with the patient, patient is open to neurosurgical intervention if it is required. The is also supportive and agreeable to neurosurgical intervention if it is required Call with questions Chuyita Kulkarni [facility] Orthopaedic Spine Surgery nurse practitioner For Dr Asim Jefferson Patient was examined, chart reviewed, labs evaluated, and diagnostic studies and findings analyzed. Case was discussed with Dr. Jemal Jefferson who formulated the plan of care. This medical document was created using an electronic medical record system with [employer] dictation system. Although this document has been carefully reviewed, there might still be some phonetic and typographical errors. These areas are purely typographical due to imperfections of the software programs, and do not reflect any compromise in the patient's medical care. Plan discussed with Plan discussed with: Patient, Other (mary lou ) Visit Coding Surgery Date of Service if different f: Mar 08, 2025 Billing Provider: PAULA KULKARNI NP Surgery Visit Codes: 49207 - INP CONSULT <55 MIN PAULA KULKARNI NP Mar 08, 2025 09:59
--- NOTE | 2025-03-08 12:54 | DVHPN2 ---
Assessment/Plan Assessment/Plan progress note 79 M with GERD, COPD admitted for neck fx s/p fall seen today, ortho spine plan for HLOC for NS eval physical exam aox4 with neck collar coarse breath sounds s1 s2 irregular abdomen soft multiple bruises no le edema labs ekg imaging reviewed assessment and plan acute dysphagia c1 c2 displaced neck fracture pAfib with jack GERD ex smoker COPD group B PNA gp vs gn? ceft and doxy hold rate control barium swallow spine recc HLOC for NS nebs PRN dc prednisone hold AC for possible surgery, will keep therapeutic lovenox diet clear dvt ppx on lovenox full code Plan discussed with: Patient My Orders Orders - KITTY SANCHEZ MD Procedure Category Date Status Time * Color Specialist CONS 03/08/25 Transmitted Consult Clear Liq Diet DIET 03/08/25 Transmitted Lunch Date of Service: Mar 08, 2025 Billing Provider: KITTY SANCHEZ MD Common Visit Codes: [id number] INP/OBS CARE(HIGH) KITTY SANCHEZ MD Mar 08, 2025 12:54
--- NOTE | 2025-03-08 15:44 | DVH ---
MRI CERVICAL WO CONTRAST INDICATION: C1, C2 fx eval ligament injury EXAM DATE: 03/08/2025 12:57 PM COMPARISON: CT CERVICAL WITHOUT CONTRAST on DOS: 03/04/25, [facility] on DOS: 11/25/21 PROCEDURE: Using a 1.5 Teresita scanner, multisequence multiplanar imaging of the cervical spine was obtained. FINDINGS: Alignment at the craniocervical junction is maintained. Mild bone marrow edema in the dens from a mildly displaced C2 dens fracture and right side C1 from C1 fracture is better seen on prior CT C -spine. The cervical spine shows anatomic alignment with preservation of vertebral body heights. The marrow signal is heterogeneous. The intervertebral discs appear decreased in height and signal. The cervical cord is normal in signal and caliber. On axial images: There is multilevel posterior disc osteophyte complex with mild narrowing of the central canal at C5-6. Multilevel neural foramina narrowing is present, worst at C4-5, C5-6. Facet and uncinate spondylosis is present. IMPRESSION: Mild bone marrow edema in the dens from a mildly displaced C2 dens fracture and right side C1 from C1 fracture is better seen on prior CT C -spine. However, no obvious ligamentous injury visualized. [facility]
--- NOTE | 2025-03-08 18:31 | DVHPN2 ---
Progress Note - Dictate Date Seen: Mar 08, 2025 Medical Necessity Reason Pt with a Central, PICC or Fol: No Subjective No new complaints Sitting at the edge of the bed Patient states he can drink some liquids when his cardiovascular physician assistant and swallow some pills vital signs Vital Sign Date Time Temp Pulse Resp B/P (MAP) Pulse Ox O2 Delivery O2 Flow Rate FiO2 03/08/25 17:51 66 18 146/88 03/08/25 16:31 98.1 94 98.1 03/08/25 08:00 Room Air* 0 21 Total Intake and Output 03/07/25 03/07/25 03/08/25 15:00 23:00 07:00 Intake Total 150 ml 725 ml 100 ml Output Total 400 ml Balance 150 ml 325 ml 100 ml medications Current Medications Medications Dose Ordered Sig/Rodrigo Route Start Time Stop Time Status Last Admin Dose Admin Sodium Chloride 10 ml Q8HR IV 03/04/25 22:00 03/08/25 14:00 10 ML Ondansetron HCl 4 mg Q4HP PRN IV 03/04/25 21:00 Albuterol 2.5 mg Q6HPRN PRN NEB 03/04/25 21:00 Cancel Ipratropium [place] 0.5 mg Q6HPRN PRN NEB 03/04/25 21:00 Cancel Pantoprazole Sodium 40 mg DAILY IV 03/05/25 10:00 03/08/25 13:00 40 MG Enoxaparin Sodium 90 mg Q12HR SC 03/05/25 10:00 03/08/25 17:49 90 MG Doxycycline Hyclate 100 ml @ 50 mls/hr Q12HR IV 03/05/25 10:00 03/08/25 13:00 50 MLS/HR Ceftriaxone Sodium 50 ml @ 100 mls/hr DAILY@09 IV 03/06/25 09:00 03/08/25 13:00 100 MLS/HR Hydromorphone HCl 0.25 mg Q4HPRN PRN IV 03/05/25 11:45 03/08/25 17:51 0.25 MG Dextrose 1,000 ml @ 75 mls/hr [id number] IV 03/05/25 15:15 03/08/25 13:02 75 MLS/HR Quetiapine Fumarate 50 mg HS PO 03/05/25 22:00 Trazodone HCl 100 mg HS PO 03/06/25 22:00 Sennosides 8.6 mg QHSP PRN PO 03/06/25 16:00 03/07/25 13:39 8.6 MG objective HEENT pupils are reactive Neck collar is in place CV is S1-S2 regular rate and rhythm Diminished person patient had GI positive bowel sounds Extremity no edema 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 However, no obvious ligamentous injury visualized. Problems(with codes): (1) Closed fracture of odontoid process of axis (2) Fracture of anterior arch of atlas (3) Cervical spine fracture (4) Dysphagia Prognosis Plan Patient is awaiting for a swallow evaluation and barium swallow At this time patient does not appear stable stable for an endoscopy because I am not sure about the stability of his neck fracture Continue conservative management, IV fluid hydration, IV PPI, ensure Clear one can p.o. three times a day with meals Spine surgical consult recommend referral to higher level of care for neuro surgical evaluation Dietary Evaluation Review Comments: 1) Initiate MVI @ 1 tb qd 2) Initiate vitamin C @ 500 mg bid and zinc sulfate @ 220 mg qd for 7 days 3) Follow-up with speech therapy r/t swallow study 4) If patient remains NPO > 7 days, consider EN/TPN to meet at least 75% estimated daily needs 5) Advance to cardiac diet when medically feasible 6) Follow-up with cardiology 7) Continue to monitor I&O, labs, and skin integrity Expected Outcomes/Goals: 1) patient to receive nutritional support within 7 days of NPO status 2) wounds to improve 3) diet to advance 4) f/u in 3-5 days Plan discussed with: Patient TALISHA CRAFT MD Mar 08, 2025 18:31
[2025-03-08] MEDS ORDERED: KETOROLAC TROMETH 30 MG/ML 1ML VIAL IV PRN (20:00)
[2025-03-08] MEDS ORDERED: ACETAMINOPHEN 500 MG TAB or CAP PO PRN (20:00)
[2025-03-08] MEDS ORDERED: HYDROmorphone HCL 2 MG/ML VL/or syr IV PRN (20:00)
--- NOTE | 2025-03-09 09:34 | DVHDS2 ---
Discharge Summary Date of Admission Mar 04, 2025 at 20:49 Date of Discharge: Mar 08, 2025 Labs/Diagnostic Data: Laboratory Results Test 03/07/25 07:49 03/06/25 17:26 03/05/25 09:45 03/05/25 00:40 Influenza Type A Antigen Negative (Negative) Influenza Type B Antigen Negative (Negative) SARS-CoV-2 Antigen (Rapid) Negative (NEGATIVE) White Blood Count 7.0 10^3/uL (4.4-10.8) Red Blood Count 4.87 10^6/uL (4.5-5.90) Hemoglobin 16.2 g/dL (13.5-17.5) Hematocrit 48.7 % (41.0-53.0) Mean Corpuscular Volume 100.1 fL (80.0-100.0) Mean Corpuscular Hemoglobin 33.2 pg (28.0-32.0) Mean Corpuscular Hemoglobin Concent 33.2 g/dL (32.0-36.0) Red Cell Distribution Width 13.6 % (11.8-14.3) Platelet Count 188 10^3/uL (140-450) Mean Platelet Volume 9.0 fL (6.9-10.8) Neutrophils (%) (Auto) 72.1 % (37.0-80.0) Lymphocytes (%) (Auto) 14.9 % (10.0-50.0) Monocytes (%) (Auto) 10.7 % (0.0-12.0) Eosinophils (%) (Auto) 1.9 % (0.0-7.0) Basophils (%) (Auto) 0.4 % (0.0-2.0) Neutrophils # (Auto) 5.0 10 ^3/uL (1.6-8.6) Lymphocytes # (Auto) 1.0 10 ^3/uL (0.4-5.4) Monocytes # (Auto) 0.7 10 ^3/uL (0-1.3) Eosinophils # (Auto) 0.1 10 ^3/uL (0-0.8) Basophils # (Auto) 0 10 ^3/uL (0-0.2) Nucleated Red Blood Cells 0.2 % Sodium Level 144 mmol/L (136-145) Potassium Level 3.6 mmol/L (3.5-5.1) Chloride Level 107 mmol/L (98-107) Carbon Dioxide Level 28 mmol/L (20-31) Anion Gap 9 (5-15) Blood Urea Nitrogen 13 mg/dL (9-23) Creatinine 0.81 mg/dL (0.700-1.30) Glomerular Filtration Rate Calc 89 mL/min (>90) BUN/Creatinine Ratio 16.0 (10.0-20.0) Serum Glucose 100 mg/dL (74-106) Calcium Level 9.1 mg/dL (8.7-10.4) Magnesium Level 2.0 mg/dL (1.6-2.6) Total Bilirubin 0.7 mg/dL (0.2-1.0) Direct Bilirubin 0.3 mg/dL (<0.3) Aspartate Amino Transferase (AST) 36 U/L (13-40) Alanine Aminotransferase (ALT) 40 U/L (7-40) Alkaline Phosphatase 82 U/L (46-116) Total Protein 6.4 g/dL (5.7-8.2) Albumin 3.8 g/dL (3.2-4.8) Urine Color Yellow (Yellow) Urine Clarity Turbid (Clear) Urine pH 6.0 (5.0-9.0) Urine Specific [place] > 1.050 (1.001-1.035) Urine Protein 1+ (Negative) Urine Ketones 2+ (Negative) Urine Blood 1+ /uL (Negative) Urine Nitrite Negative (Negative) Urine Bilirubin Negative (Negative) Urine Urobilinogen 2 mg/dL (Negative) Urine Leukocyte Esterase 1+ /uL (Negative) Urine RBC 17 /hpf (0 - 3) Urine Microscopic WBC 8 /HPF (0-3) Urine Squamous Epithelial Cells Mod /hpf (<5) Urine Bacteria None seen /hpf (None Seen) Urine Mucus Few (None Seen) Urine Glucose Normal mg/dL (Normal) Urine Opiates Screen Pos (NEGATIVE) Urine Fentanyl Screen Pos (NEGATIVE) Urine Barbiturates Screen Neg (NEGATIVE) Urine Phencyclidine Screen Neg (NEGATIVE) Urine Amphetamines Screen Neg (NEGATIVE) Urine Benzodiazepines Screen Neg (NEGATIVE) Urine Cocaine Screen Neg (NEGATIVE) Urine Cannabinoids Screen Neg (NEGATIVE) Test 03/04/25 14:40 Troponin I High Sensitivity 20 ng/L (</=54) Other Laboratory Tests 03/06/25 17:26 Brief Hx & Hospital Course: Patient is a 79-year-old male with past medical history of AFib, COPD, GERD presented to [facility] ED with complaint of difficulty swallowing and dizziness. 1 week ago, on Friday morning, the patient experienced a fall while standing and walking a few steps. He hit his head and lost consciousness for approximately 2-3 minutes. Post-fall, he developed visible bruises in this forehead, and was taken to [facility], where diagnosed with C1 vertebra fracture. He was subsequently transferred to [facility] for rehabilitation and then sent to [facility] today. Since the fall, the patient reports difficulty swallowing and occipital headache. He started experiencing dysphagia to both liquids and solids 3 days ago. On evaluation in the ED, patient is afebrile, hypoxic and tachycardia. Initial labs show within normal limit. Chest X-ray shows patchy bilateral airspace disease in the lower lung murphy. able to sip soriano. seen by ortho spine, recommend to transfer to [facility] for neurosurgery eval and possible surgery. stable to transfer for [facility] Condition at Discharge: Stable Final Diagnosis/Problems List acute dysphagia c1 c2 displaced neck fracture pAfib with jack GERD ex smoker COPD group B PNA gp vs gn? Discharge Disposition: Acute Care Facility Discharge Instruct/Medications Diet: See Comment Activity: Light activity Scheduled Aspirin (Aspirin), 325 MG PO DAILY, (Reported) Azithromycin (Zithromax Tablet), 250 MG PO DAILY Clindamycin HCl (Clindamycin Hydrochloride), 300 MG PO TID Pantoprazole Sodium Sesquihydr (Pantoprazole Sodium), 1 TAB PO DAILY, (Reported) Prednisone (Prednisone), 40 MG PO DAILY Trazodone Hcl (Trazodone Hcl), 2 TAB PO QPM, (Reported) Scheduled PRN Acetaminophen (Tylenol), 325 MG PO DAILY PRN for KNEE PAIN, (Reported) Acetaminophen W/ Codeine (Tylenol W/Cod #3), 1 TAB PO QID PRN Diltiazem HCl (Diltiazem Hydrochloride), 120 MG PO DAILY PRN Docusate Sodium (Docusate Sodium), 100 MG PO DAILY PRN Ibuprofen (Ibuprofen), 200 MG PO DAILY PRN for KNEE PAIN, (Reported) Magnesium Hydroxide (Milk Of Magnesia), 400 MG PO DAILY PRN for CONSTIPATION, (Reported) Senna (Senna Lax), 8.6 MG PO QHSP PRN Discharge Statement: "Patient was advised to return to the ER or call 911 if any headaches, dizziness, shortness of breath, chest pain, abdominal pain, bleeding, fevers, or worsening of medical condition. Patient was counseled about treatment plan, medications, possible side effects, patientverbalized understanding. All questions were answered to the best of my ability. This discharge took greater then 30 minutes in planning, reviewing documentation, counseling the patient, and discussing with other team members." ASSESSMENT ASSESSMENT Assessment Acute Achalasia Date of Service: Mar 08, 2025 Billing Provider: KITTY SANCHEZ MD Common Visit Codes: 32435-DXG/OBS DISCH DAY >30min KITTY SANCHEZ MD Mar 09, 2025 09:34
== END 2025-03-08 22:06 | disposition short-term general hospital (02) | DRG 391 ==
LOC: EDBD 14:10 → ER 14:28 → OVERFLOW 20:49 → CENTRAL 03-05 01:55
PROVIDERS: ADMIT Student in an Organized Health Care Education/Training Program; ATTEND Student in an Organized Health Care Education/Training Program
DX: K22.0 Achalasia of cardia (principal); J15.69 Pneumonia due to other Gram-negative bacteria; J15.9 Unspecified bacterial pneumonia; S12.000A Unspecified displaced fracture of first cervical vertebra, initial encounter for closed fracture; S06.9X1A Unspecified intracranial injury with loss of consciousness of 30 minutes or less, initial encounter; S12.100A Unspecified displaced fracture of second cervical vertebra, initial encounter for closed fracture; S12.110A Anterior displaced Type II dens fracture, initial encounter for closed fracture; J44.0 Chronic obstructive pulmonary disease with (acute) lower respiratory infection; I71.21 Aneurysm of the ascending aorta, without rupture; I48.0 Paroxysmal atrial fibrillation; Z20.822 Contact with and (suspected) exposure to COVID-19; K21.9 Gastro-esophageal reflux disease without esophagitis; R91.1 Solitary pulmonary nodule; M43.12 Spondylolisthesis, cervical region; M50.31 Other cervical disc degeneration, high cervical region; F17.210 Nicotine dependence, cigarettes, uncomplicated; I10 Essential (primary) hypertension; M47.812 Spondylosis without myelopathy or radiculopathy, cervical region; W18.30XA Fall on same level, unspecified, initial encounter; Z79.899 Other long term (current) drug therapy; Z90.49 Acquired absence of other specified parts of digestive tract; Y93.89 Activity, other specified; Y92.89 Other specified places as the place of occurrence of the external cause; Y99.8 Other external cause status
CPT/HCPCS: 36415; 70450; 71045; 71260; 72125; 72141; 80048; 80053; 80076; 80307; 81001; 83735; 84484; 85025; 87081; 87426; 87804; 92610; 93005; 94640; 97116; 97163; 97530; G0378; J2470